=== PATIENT | female | born 1965 | race Caucasian/White ===

== ENCOUNTER → 2016-11-06 | Outpatient (CLI) | payer MEDICAID ==
[~2016-11-06] MED LIST: ASPIR 8181 MG PO; ATIVAN 1 MG1 MG PO; BYSTOLIC5 MG PO; CORDARONE,PACE200 MG PO; DUONEB INH; LASIX40 MG PO; LOPERAMIDE2 MG PO; NORCO 5-325 TA1 EACH PO; PROVENTIL OR V6.7 GM INH; ZOFRAN4 MG PO
== END ==
LOC: LKRMC 09:36
DX: R91.8 Other nonspecific abnormal finding of lung field (principal)

== ENCOUNTER 2016-11-20 20:50 | Inpatient (IN) | payer MEDICAID ==
[~2016-11-20] VITALS: Ht 165.1 cm; Wt 77.7 kg
--- NOTE | ~2016-11-20 | HP ---
PATIENT'S NAME: RAJ POSADASH Gerson [facility] AGE: 50 Y [address] ROOM: [place] [address] LOCATION: GPCU ADMIT DATE: 11/20/2016 History & Physical DISCHARGE DATE: FAMILY PHYSICIAN: PHYSICIAN, NO ATTENDING PHYSICIAN: Aaron Ny DATE OF SERVICE: CHIEF COMPLAINT: Acute hypoxic respiratory failure in the setting of recently discovered mediastinal mass. HISTORY OF PRESENTING ILLNESS: This 50-year-old white female with history of tobaccoism came to the emergency department this evening with unrelenting right-sided pleuritic-type chest wall pain, coughing, and dyspnea, which came on around 3 o'clock in the morning last night. She was unable to get any relief and decided to come in for definitive evaluation and management. She was seen and evaluated by Dr. Coates for cough and shortness of breath which began about a month ago. She had a CT scan done about 3 weeks ago, which demonstrated a mediastinal mass. She was scheduled to follow up with Dr. Osorio on an outpatient basis, but felt that she "couldn't wait any longer." She has been having paroxysms of coughing and episodes of hemoptysis. She denies fever, chills, or sweats. Denies headaches, dizziness, or lightheadedness. No abdominal pain. No nausea. Appetite has been fair. She stools and voids normally. Denies numbness or tingling in her extremities or any associated physical or constitutional complaints. PAST MEDICAL HISTORY: ALLERGIES: STATINS, LATEX. ILLNESSES: 1. Essential hypertension. 2. Chronic hypoxic and hypercapnic respiratory failure. 3. Lower extremity edema. 4. Mediastinal mass (discovered recently). CURRENT MEDICATIONS: 1. Proventil HFA 2 puffs p.o. q.4 hours p.r.n. shortness of breath. 2. Aspirin 81 mg p.o. daily. 3. Lasix 40 mg p.o. daily. 4. DuoNeb per nebulizer q.6 hours p.r.n. shortness of breath. PATIENT'S NAME: NICHOLE POSADAS [facility] AGE: 50 Y [address] ROOM: [place] [address] LOCATION: GPCU ADMIT DATE: 11/20/2016 History & Physical DISCHARGE DATE: FAMILY PHYSICIAN: PHYSICIAN, NO ATTENDING PHYSICIAN: Aaron Ny 5. Nebivolol 5 mg p.o. daily. FAMILY HISTORY: Significant for VFib in her father, he also suffered from diabetes mellitus. Mother has high blood pressure. SOCIAL HISTORY: She is and lives in [place]. She has a 91-jdjf-jegh-year history of smoking tobacco, currently smokes less than a pack of cigarettes per day. No significant history of alcohol use and no illicit drug use. REVIEW OF SYSTEMS: As per HPI. All other organ systems are reviewed and are negative. OBJECTIVE: VITAL SIGNS: Temperature 100.1, pulse 106, respirations 24, blood pressure 172/67, weight is 77.3 kilograms, O2 saturation 96% on room air. GENERAL: She is anxious, cooperative, lying in the bed, in no acute distress. She demonstrates paroxysms of coughing. SKIN: Supple, pink, warm, and dry. No obvious rashes. HEENT: Otherwise, normocephalic. Sclerae nonicteric. Pupils equal, round, and reactive to light and accommodation. Extraocular movements appear intact. Nasal turbinates normal in appearance. Oropharynx clear. Mucous membranes are pink and moist. NECK: Supple. No masses or adenopathy. No thyromegaly. No JVD. CHEST: Chest wall is symmetrical. HEART: Tachycardic but regular. LUNGS: Coarse and diminished. Long expiratory phase. No candy wheezes. No areas of consolidation. ABDOMEN: Soft, nontender. Bowel sounds present. No masses or hepatosplenomegaly. : Not done. RECTAL: Not done. EXTREMITIES: Display no significant clubbing, cyanosis, or edema. NEUROLOGIC: Anxious but no focal deficits. LABORATORY AND X-RAY DATA: CT scan per PE protocol shows a large mediastinal mass without significant change from previous. CBC showed a white blood cell count 12.1, hemoglobin is 12.6, hematocrit is 36.3, platelets 237. Chemistries revealed BUN and creatinine 9 and 0.6 respectively, sodium and potassium of 136 and 3.6, chloride and CO2 of 105 and 22, calcium is 8.8. AST and ALT 26 and 17. Albumin was 3.1. Glucose 124. Sedimentation rate was elevated at 79. PT and PTT 11 and 30 respectively with an INR of 1.05. ABGs revealed a pH 7.49, pCO2 of 30, pO2 of 66. Cardiac enzymes revealed a troponin I of less than 0.04. PATIENT'S NAME: NICHOLE POSADAS [facility] AGE: 50 Y [address] ROOM: [id number] [place], [place] [address] [facility] ADMIT DATE: 11/20/2016 History & Physical DISCHARGE DATE: FAMILY PHYSICIAN: PHYSICIAN, NO ATTENDING PHYSICIAN: Aaron Ny ProBNP was 252. C-reactive protein 9.57. ASSESSMENT AND PLAN: 1. Acute hypoxic respiratory failure in the setting of mediastinal mass. We will admit to inpatient care. Continue with supplemental oxygen. Encourage good pulmonary hygiene. We will have Respiratory Therapy assess and provide risk severity scoring. We will hold off on antibiotic therapy and await cultures and follow up on that when the results are known. 2. Mediastinal mass. We will request consultation with Dr. Osorio to consider mediastinoscopy. We will hold her n.p.o. for now until those plans can be delineated. 3. Hemoptysis. We will review the CT scan report when it is available. We will manage the cough symptomatically for now and await Dr. Osorio's evaluation. Also await cultures as above. 4. Essential hypertension, suboptimal control. We will resume her nebivolol and monitor the trend. We will watch her fluid volume balance carefully. 5. Mild protein calorie malnutrition. Encourage balanced nutritional intake. She is going to be n.p.o. in anticipation of the procedure as above. 6. Deep venous thrombosis prophylaxis. We will hold off on heparin or Lovenox in light of the possibility of mediastinoscopy. MD BURAK ISABEL/latisha /[id number] D: [id number] T: [id number] HISTORY & PHYSICAL
--- NOTE | ~2016-11-20 | ER ---
[facility] A[facility] 50 Y [address] ROOM: [id number] [place], [place] [address] [facility] ADMIT DATE: 11/20/2016 ER/Outpatient Report DISCHARGE DATE: FAMILY PHYSICIAN: PHYSICIAN, NO ATTENDING PHYSICIAN: Aaron Ny Admission date and time documented on the medical record. I saw the patient at 2105 hours. CHIEF COMPLAINT: Shortness of breath, persistent productive cough of bloody sputum, fatigue, pain on inspiration, and fever. HISTORY OF PRESENT ILLNESS: This patient is a 50-year-old female, who has been ill for about a month. She has had a persistent cough and is now having hemoptysis with shortness of breath and fatigue. She has pain on inspiration. She has been running a fever up to 102 over the past [address] hours[address] She had a CT scan of the chest 3 weeks ago that showed a mediastinal mass that she had a bronchoscopy by Dr. Coates, billiard player. Biopsy was performed. Biopsy was negative. She was scheduled to see Dr. Osorio, thoracic surgeon, tomorrow, but was feeling so rotten that [facility] Temperature was 100.1 tympanic on arrival here. She was satting 96% on room air. She has had some hemoptysis and persistent cough. She had some pain on inspiration but no other chest pain. No back pain. No abdominal pain. No nausea, vomiting, diarrhea, or urinary frequency, urgency, or dysuria. No incontinence. No lightheadedness, dizziness, syncope, or near syncope. No headache, eyes, ears, nose, throat, neck, or spine pain. No fall or trauma. She has been on Levaquin for about 10 days. Her last day of the Levaquin medication is tomorrow. No joint or muscle swelling, redness, or pain. No skin eruptions or rash. No history of neuro changes. She does have some anxiety problems, depression problems. No endocrine problems. HOME MEDICATIONS: See attached medication list. ALLERGIES: STATINS. SOCIAL HISTORY: The patient smokes a pack of cigarettes per day. Occasional intake of alcohol. SIGNIFICANT PAST MEDICAL HISTORY: Hypertension, asthma, tobacco abuse, hemoptysis, mediastinal mass, pneumonia. PATIENT'S NAME: NICHOLE POSADAS [facility] AGE: 50 Y [address] ROOM: [id number] [place], [place] [address] LOCATION: GPCU ADMIT DATE: 11/20/2016 ER/Outpatient Report DISCHARGE DATE: FAMILY PHYSICIAN: PHYSICIAN, NO ATTENDING PHYSICIAN: Aaron Ny OPERATIONS: Shoulder surgery, bronchoscopy, hysterectomy, tubal ligation, colonoscopy. REVIEW OF SYSTEMS: All systems reviewed by me are negative with the exception of those discussed in the history of present illness. PHYSICAL EXAMINATION: VITAL SIGNS: Temperature 100.1 tympanic, pulse 106, respirations 24, blood pressure 172/67, O2 saturation on room air is 96%. HEENT: Head: Normocephalic. Eyes: Clear. Ears: Clear TMs bilaterally. Nose clear. Throat: Clear. Mucous membranes moist. NECK: Negative. SPINE: Negative. LUNGS: Decreased breath sounds especially in the right lung field. Inspiratory wheezing in the right upper lung. Scattered rhonchi. Coarse cough. Some mild hemoptysis. The patient is tachypneic with a respiratory rate of 24. HEART: Tachy, regular. Pulses palpable. ABDOMEN: Soft, nondistended, nontender. Good bowel tones. No organomegaly or abnormal mass palpable. EXTREMITIES: No peripheral edema, cyanosis, or deformity. NEUROVASCULAR: Intact. SKIN: Clear. No skin eruptions or rash. LABORATORY DATA AND X-RAYS: Chest x-ray shows most likely mediastinal mass with right upper lobe infiltrate. We will review x-ray with the radiologist. Laboratory: Procalcitonin was 0.06, lactate was 1.2. Arterial blood gases showed a pH of 7.49, pCO2 of 30 with a pO2 of 66, O2 saturation 94% on room air. White count was 12,100, 76 segs, 16 lymphs, 6 monos, 1 eo, 1 baso, hemoglobin was 12.6, hematocrit 36.3, platelet count was 237,000, sedimentation rate is 79. PTT was 30, pro-time was 11, with an INR 1.05. Respiratory panel was negative. D-dimer was 2.32. CMS was normal except for low potassium 3.6, elevated glucose 124. CPK was 138. Busie-tp-wgvi cardiac enzymes were normal. CRP was 9.57. ProBNP was 252. EMERGENCY DEPARTMENT COURSE: I went ahead and did give the patient IV normal saline, fluids, fentanyl for pain. I got a CT scan of the chest with PE protocol that showed no pulmonary embolism. She has a large mediastinal mass, resulting in right main pulmonary artery stenosis and superior vena cava stenosis. She has consolidation in the right middle and upper lobe with cavitation in the superior segment of the PATIENT'S NAME: NICHOLE POSADAS [facility] AGE: 50 Y [address] ROOM: [place] [address] [facility] ADMIT DATE: 11/20/2016 ER/Outpatient Report DISCHARGE DATE: FAMILY PHYSICIAN: PHYSICIAN, NO ATTENDING PHYSICIAN: Aaron Ny right upper lobe. Small right pleural effusion. Moderate to severe emphysema. She had indistinct enlargement of the left adrenal gland. CT scan was read by Radiology, see dictated transcribed report. I did discuss this patient with Dr. Osorio. The patient will be admitted to the hospital. IMPRESSION: 1. Hemoptysis with shortness of breath, inspiratory wheezing and pain with a large mediastinal mass, and consolidation of the right middle and upper lobes on CT scan of the lung. 2. History of chronic obstructive pulmonary disease, asthmatic type. 3. Tobacco abuse. 4. Hypertension. PLAN: Discussed the patient with Dr. Ny, hospitalist. We will admit the patient to the hospital. Consult with Dr. Osorio on this patient. The patient most likely will need a mediastinoscopy for further evaluation of this large mediastinal mass. Discussion ensued with the patient and her regarding my findings and recommendations, she understands. Accumulated critical care time 30 minutes. MD TAYLOR ACHARYA/modl /[id number] P d: 11/21/16 0408 t: 11/21/16 1809, OUTPATIENT REPORT
--- NOTE | ~2016-11-20 | CON ---
PATIENT'S NAME: LALA POSADAS [facility] AGE: 50 Y [address] ROOM: [id number] [place], [place] [address] LOCATION: GPCU ADMIT DATE: 11/20/2016 Consultation DISCHARGE DATE: FAMILY PHYSICIAN: PHYSICIAN, NO ATTENDING PHYSICIAN: Aaron Ny DATE OF CONSULTATION: 11/21/2016 REFERRING PHYSICIAN: Iftikhar Coates MD A consult to Mihir Osorio DO. CHIEF COMPLAINT: Lala Posadas is a 50-year-old woman with an uncharacterized mediastinal mass that is probably a tobacco related cancer. HISTORY OF PRESENT ILLNESS: The history of the present illness is obtained from visiting with Mrs. Posadas who is a reasonably good historian; with Dr. Osorio; and review of the current [facility] record. The patient was in her normal state of health until July 2016. At that time, she developed a cough productive of green sputum and a fever to 100 to 102.6 degrees. The patient had no rigors or sweats. She saw a physician's grants and contracts assistant in [place], who prescribed an antibacterial antibiotic, benzonatate, and a nebulizer which helped her symptoms. However, the cough persisted. In late August 2016, the patient presented for re-evaluation and levofloxacin was administered. Her cough improved for a week. In October 2016, the patient presented to the emergency room in [place]. Antibiotics were prescribed, and the patient was referred to Dr. Iftikhar Coates for evaluation of the mediastinal mass. Two days later, the patient saw Dr. Coates; and 3 days later, the patient underwent a bronchoscopy. Reviewing Dr. Coates's record on 11/01/2016, the CAT scan of the chest with PE protocol was performed in the [place] [facility] and revealed a 7.3 cm right hilar and subcarinal mass with calcifications present within the superior portion of the mass. There was encasement of the right mainstem bronchus and narrowing of the distal right upper lobe bronchi. Mediastinal lymphadenopathy was present with the largest node measuring 1.6 cm. Dense consolidation with cavitation was noted within the posterior right upper lobe. The lungs demonstrated diffuse peribronchial thickening, more prominent within the right lung and much more pronounced within the upper lobe of the right lung. Centrilobular emphysema was noted throughout, more prominent within the apices. The upper abdomen was unremarkable. On 11/06/2016, Dr. Coates PATIENT'S NAME: LALA POSADAS [facility] AGE: 50 Y [address] ROOM: [id number] [place], [place] [address] LOCATION: GPCU ADMIT DATE: 11/20/2016 Consultation DISCHARGE DATE: FAMILY PHYSICIAN: PHYSICIAN, NO ATTENDING PHYSICIAN: Aaron Ny performed the bronchoscopy. That report is not appended to the medical record. The fine-needle aspirate of the main raphael was negative for malignant cells. The right upper lobe endobronchial biopsy revealed no changes diagnostic for cancer. The right upper lobe bronchoalveolar lavage was negative for malignant cells. The right middle lobe bronchoalveolar lavage were negative for cancer. The respiratory culture revealed 10,000 to 50,000 Enterobacter cloacae. AFB smears and fungal smears and cultures were negative. The patient was referred to Dr. Mihir Osorio for evaluation of the potential benefit of the mediastinoscopy for diagnostic purposes. However, prior to that appointment, the patient became so ill she presented to the [facility] Emergency Room. The patient developed severe right chest pain associated with hemoptysis. The patient recalls she produced goobers of blood about the size of a quarter on 10 occasions. She developed some pleurisy. She felt she had a fever although the possibility of a dental infection was in the differential diagnosis (the patient has been seeing Dr. Mihir Crews for dental evaluation and had been told she needed an antibiotic, and tooth cleaning, and possible extraction). The patient acknowledged she had been anorexic for a month and had lost 25 to 30 pounds. The patient has experienced substernal dysphagia for large pills, bread, and meat, and mild odynophagia without heartburn. On 11/21/2016, Dr. Osorio took the patient to surgery and performed a mediastinoscopy with biopsy of mediastinal mass. Dr. Osorio saw an anterior mediastinal mass when he entered the mediastinum and biopsied it. The patient's lab and x-ray upon admission revealed the white count was 12,100 with 76% neutrophils, hemoglobin was 12.6 g/dL, the MCV 95, and the platelets 237,000. The INR was 1.05. The PTT was 30. The CMS revealed an albumin of 3.1 g/dL, globulin 4.5 g/dL, and was otherwise unremarkable. The C-reactive protein was 9.57 g/dL, TSH 2.790, and the T4 was 8 ug/dL. The LDH has subsequently been obtained and was 1330 International Units/L with the upper limits of normal being 246. Blood cultures are negative. The two-view chest upon admission revealed the right hilar mass with dense patchy parenchymal opacity at the lateral right upper lung. The CT scan with PE protocol on 11/20/2016 was compared to the earlier scan on 11/01/2016 performed in [place]. The mediastinal mass was now 8.9 cm. Internal calcifications were present. There was marked anterior and middle mediastinal adenopathy and a large mass extended to the right hilum. There was mass effect with displacement of the adjacent vascular structures and marked severe narrowing of the right main pulmonary artery. There was severe stenosis of the distal superior vena cava. Dense consolidation with cavitation was present at the upper lobe of the right lung. A small right pleural effusion was present. There was diffuse enlargement of the left adrenal gland compatible with PATIENT'S NAME: LALA POSADAS [facility] AGE: 50 Y [address] ROOM: [place] [address] [facility] ADMIT DATE: 11/20/2016 Consultation DISCHARGE DATE: FAMILY PHYSICIAN: PHYSICIAN, NO ATTENDING PHYSICIAN: Aaron Ny. There was no evidence of pulmonary emboli, but emphysematous changes were present throughout the mid and upper lungs bilaterally. A small pericardial effusion was present. The patient smoked 1 pack per day of cigarettes for 36 years, most recently [place], but has abstained from tobacco for a month. She reports no occupational exposure to asbestos, Radon, or diesel fuel. 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 PAST MEDICAL HISTORY: Active medical problems, chronic and diagnosed. 1. Essential arterial hypertension noted on a checkup in 2005. This has not been labile or associated with end-organ damage. 2. COLD with reactive airways disease depending on the season. The patient has been on inhalers for exercise-induced asthma for many years and has centrilobular emphysema on her x-ray. 3. Tobacco use: one pack per day for 36 years, abstained for a month. 4. Overweight. The BMI on 11/20/2016, is 29.8 kg/m2. 5. Allergic rhinitis, treated with montelukast. 6. Colonic polyposis. His screening colonoscopy at age 45 performed in [place] revealed benign polyps. The patient cannot characterize them further. 7. Hypercholesterolemia noted in 2011. 8. Lumbar spinal stenosis, possibly symptomatic with left thigh discomfort. PAST SURGICAL HISTORY: Acute medical illnesses (resolved), past surgeries, injuries: 1. 1971, left wrist fracture. 2. 2798-1038: G4, P4, AB0. 3. 2000, SLAP injury of the right superior glenoid labrum, treated surgically. 4. 2007, vaginal hysterectomy with left unilateral salpingo-oophorectomy. The patient had multiple concerning Pap smears associated with the human papillomavirus. MEDICATIONS: Upon admission: 1. Albuterol HFA one puff every 4 hours. 2. ASA 81 mg p.o. daily. 3. Furosemide 40 mg daily. 4. Ipratropium/albuterol one inhalation every 6 hours. 5. Nebivolol 5 mg p.o. daily. ALLERGIES: ADVERSE REACTIONS TO MEDICATIONS, TRANSFUSIONS, AND ALLERGIES. PATIENT'S NAME: LALA POSADAS [facility] AGE: 50 Y [address] ROOM: [place] [address] [facility] ADMIT DATE: 11/20/2016 Consultation DISCHARGE DATE: FAMILY PHYSICIAN: PHYSICIAN, NO ATTENDING PHYSICIAN: Aaron Ny 1. MULTIPLE STATINS LED TO MUSCLE ACHES. 2. THE PATIENT HAS HAD NO BLOOD TRANSFUSIONS. SOCIAL HISTORY: Tobacco: 1. One pack per day for 35 years. Abstained since October 2016. Alcohol: 1. A beer every several months. Caffeine: 1. One green tea daily, but the patient maintains that she sips it all day. 2. One coffee in the morning. 3. Dr. Beach a day. IMMUNIZATIONS: Positive flu. Positive Pneumovax. In 2013, positive tetanus toxoid booster. Negative varicella zoster virus. FAMILY HISTORY: The patient's paternal grandfather of mesothelioma at age 88. SOCIAL HISTORY: The patient was born in [place], [place], but her family moved to [place], [place] at age 11 and she graduated a [employer]. 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 The patient also got a bachelor's in Health Information Management in 2015. She currently [place] her boyfriend. She has and has been on 3 occasions. She has a daughter in [place], [place] and 3 sons in [place], [place]. The patient is not a mu-ism goer. REVIEW OF SYMPTOMS: 1. Nocturia, times 1 to 2. 2. Constipation. The patient maintains she is having fewer bowel movements because she has been eating less frequently. PHYSICAL EXAMINATION: VITAL SIGNS: Pulse 88 and regular, blood pressure 125/55, respiratory rate 28, temperature 97.7, and SpO2 of 96% on 2 L. Height 64 inches, weight 78.8 kg (174 pounds). BMI 29.8 kg/m2. GENERAL: Well-developed, overweight, 50-year-old female, who is tachypneic. HEENT: The patient has several teeth left in the maxillary jaw and they are all in poor repair. The patient's face is minimally edematous. Lymph nodes not palpable. NECK: Mild JVD. There is a scar just superior to the sternum where the mediastinoscopy was performed. PATIENT'S NAME: LALA POSADAS [facility] AGE: 50 Y [address] ROOM: [address] [place] [id number] [facility] ADMIT DATE: 11/20/2016 Consultation DISCHARGE DATE: FAMILY PHYSICIAN: PHYSICIAN, NO ATTENDING PHYSICIAN: Aaron Ny CHEST: Bilateral rhonchi and decreased breath sounds throughout the right lung. CV: Decreased S1 and S2. No murmurs, bruits, or adventitious sounds. BREASTS: No masses. ABDOMEN: No masses, tenderness, or organomegaly. GENITALIA AND RECTAL: Not examined. EXTREMITIES: Without peripheral edema. Pulses 2+ throughout. NEUROLOGIC: Cranial nerves 2 through 12 intact. Strength 5/5 throughout. Deep tendon reflexes not assessed. SKIN: A wart is present on the back. There are junctional nevi and freckles. IMPRESSION: 1. A 50-year-old woman with a 3 month history of progressive productive cough, occasionally responsive to antibiotics, now anorexic for 1 month with a 25 to 30 pound weight loss, anorexia, odynophagia, a markedly elevated LDH, in association with an 8.9 cm middle mediastinal mass extending to the right hilum displacing adjacent vascular structures as well as the left adrenal gland mass which is new over 3 weeks. The patient is at risk for superior vena cava syndrome. 2. 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 Given the rapidity with which her symptoms have developed, she may have small cell carcinoma. RECOMMENDATIONS: Diagnostic: 1. MRI of the brain when able. At the present time, the patient cannot lie recumbent. 2. Await tissue. 3. Biopsy of the left adrenal gland if the mediastinoscopy results are negative. Treatment: 1. Pending tissue, no antineoplastic therapy now. Patient Education: 1. Told we suspect she has a tobacco related primary lung cancer. 2. Told that she had a small cell carcinoma of the lung, which the odds favor. Her prospects could rapidly improve with systemic chemotherapy. MD JORDEN BAEZ/modl PATIENT'S NAME: LALA POSADAS [facility] AGE: 50 Y [address] ROOM: [place] [address] [facility] ADMIT DATE: 11/20/2016 Consultation DISCHARGE DATE: FAMILY PHYSICIAN: PHYSICIAN, NO ATTENDING PHYSICIAN: Aaron Ny /[id number] CC: MD Iftikhar Knutson MD Jeffrey R Berney, MD d: 11/23/16 1755 t: 11/25/16 0910, CONSULTATION REPORT
--- NOTE | ~2016-11-20 | OR ---
PATIENT'S NAME: NICHOLE POSADAS [facility] AGE: 50 Y [address] ROOM: [place] [address] LOCATION: GICU ADMIT DATE: 11/20/2016 OR/Procedure Report DISCHARGE DATE: FAMILY PHYSICIAN: PHYSICIAN, NO ATTENDING PHYSICIAN: Aaron Ny SURGEON: Mihir Lerma DO TECHNICAL CUSTOMER SUPPORT SPECIALIST: DATE OF PROCEDURE: 11/21/2016 PREOPERATIVE DIAGNOSIS: Mediastinal mass. POSTOPERATIVE DIAGNOSIS: Mediastinal mass with frozen section indicating malignancy. PROCEDURE: Mediastinoscopy with biopsy of mediastinal mass. BRIEF HISTORY: Ms. Posadas is a 50-year-old, white female with the above- noted diagnosis. DESCRIPTION OF PROCEDURE: She has been brought to the operative suite today after informed consent was obtained. Sterilely prepped and draped in usual fashion after induction of general anesthetic for mediastinoscopy. A 2.5 cm curvilinear incision was created one fingerbreadth above the sternal notch and the incision was carried out with 11 blade and then we switched to cautery for the remainder the dissection and hemostasis. Larger veins were encountered secondary to the mediastinal mass with the SVC compression. These were divided with surgical clips and 2-0 ties. We the strap muscles and identified the tracheal rings. We entered the anterior mediastinum bluntly with a finger tip and advanced the mediastinoscope. Mediastinal mass was encountered. Biopsies were taken for both frozen and permanent section. Frozen section did indicate malignancy. Additional hemostasis was obtained with electrocautery. Mediastinoscope was withdrawn. The strap muscles were approximated with a 2-0 Vicryl. The platysma was closed with 2-0 Vicryl and the skin was closed with 4-0 Monocryl. The patient tolerated the procedure well. MIHIR LERMA DO MCB/nellal /[id number] d: 11/22/162229 t: 11/23/16 0950, OPERATIVE SUMMARY
--- NOTE | ~2016-11-20 | OR ---
PATIENT'S NAME: NICHOLE POSADAS [facility] AGE: 50 Y [address] ROOM: [address] [place], [place] [address] LOCATION: GPCU ADMIT DATE: 11/20/2016 OR/Procedure Report DISCHARGE DATE: FAMILY PHYSICIAN: PHYSICIAN, NO ATTENDING PHYSICIAN: Aaron Ny SURGEON: Mihir Osorio DO BI ARCHITECT: DATE OF PROCEDURE: 11/22/2016 PREOPERATIVE DIAGNOSIS: Pericardial tamponade. POSTOPERATIVE DIAGNOSIS: Pericardial tamponade. PROCEDURE PERFORMED: Subxiphoid approach to pericardial window. BRIEF HISTORY: Mrs. Posadas is a 50-year-old white female, well known to me from a mediastinoscopy performed yesterday for a very large mediastinal mass which was malignant. Today, early in the morning, she had an episode of atrial fibrillation, and an echo was ordered as part of that workup. She had converted to sinus rhythm and was resting comfortably until approximately 3:15 in the afternoon when she woke up suddenly with acute shortness of breath requiring her to sit almost bolt upright to achieve any kind of easy breathing. The echo was reviewed and found to have significant changes of pericardial tamponade. We were called, and she has been brought to the operative suite immediately for decompression of the pericardial effusion. DESCRIPTION OF PROCEDURE: She was intubated in a semirecumbent fashion secondary to her dyspnea, and then once stabilized, sterilely prepped and draped in the usual fashion over the sternum and anterior epigastrium. An incision was carried out over the level of the xiphoid onto the anterior epigastrium. Fascia was divided in the midline. The xiphoid was divided and then retracted. Soft tissues were excised with electrocautery. Hemostasis was controlled with electrocautery. The pericardium was encountered. The fluid behind the pericardium did not appear bloody as I was slightly worried for erosion of the major vessels involved by the mediastinal mass. The pericardium was opened. Serous-appearing fluid was evacuated, approximately 150 to 200 mL, and specimen was sent for cytology of the fluid, as well as specimen was sent for histologic examination of the pericardium. A 19-Maltese Anupam drain was brought through a separate stab incision, placed in the pericardial space, and secured to the chest with 0 silk. The incision was then closed in a layered fashion with 0 Vicryl and 4-0 Monocryl. The patient tolerated the procedure well and was transferred to the recovery area in stable condition. PATIENT'S NAME: NICHOLE POSADAS [facility] AGE: 50 Y [address] ROOM: [place] [address] [facility] ADMIT DATE: 11/20/2016 OR/Procedure Report DISCHARGE DATE: FAMILY PHYSICIAN: PHYSICIAN, CARA ATTENDING PHYSICIAN: Aaron Ny DO EDWARDO HERNANDEZ/latisha /[id number] d: 11/23/16 1633 t: 11/24/16 1117, OPERATIVE SUMMARY
--- NOTE | ~2016-11-20 | ECHO ---
Transthoracic Echocardiography Report (TTE) Demographics Patient Name NICHOLE POSADAS Date of Study 11/22/2016 Patient Number [id number] Visit Number [id number] Date of 1965 Room Number G6318 Gender Female Number Age 50 year(s) Referring Yanely Velásquez MD Church Warden Anette Khoury RVT, Physician RDCS Physician Interpreting Evan [employer] Project Engineer Physician A Supervising Ordering [facility] MD/MLP Physician Nurse Stress Business Administration Teacher Conclusions Contractility Score Summary Normal Left Ventricular contractility was noted. Summary Technically difficult exam. Exam done with patient sitting up due to difficult breathing for the patient. The estimated left ventricular ejection fraction is 50-55%. The left ventricle is normal in size . Unable to determine diastolic function. Mild tricuspid regurgitation by color Doppler. There is mild pulmonary hypertension. The pulmonary pressure (RVSP) is 38 mmHg. Moderate global pericardial effusion. There is echocardiographic evidence of early cardiac tamponade. Procedure Type of Study TTE procedure:2D Echocardiogram. Procedure Date Date: 11/22/2016 Start: 02:26 PM Study Location: Inpatient Portable Technical Quality: Fair due to patient immobility. Indications:Atrial fibrillation. Appropriate Use Criteria: 8 Patient Status: Routine Rhythm: NSR HR: 78 bpm BP: 102/54 mmHg M-Mode/2D Measurements LV Diastolic Dimension: 4.2 cm LV Systolic Dimension: 3.1 cm LV Septum Diastolic: 1.02 cm LV PW Diastolic: 1.03 cm AO Root Dimension: 2 cm Cardiac Output: 2.52 l/min LA Dimension: 3.3 cm RV Diastolic Dimension: 2.3 cm LVOT: 1.9 cm EF Estimated: 50 % LVOT VTI: 11.4 cm LV Stroke volume: 32.31 ml RV Mid: 2.59 cm RV Length: 5.3 cm TAPSE: 1.37 cm TDI-S': 11.6 cm/s Doppler Measurements AV Peak Velocity: 1.2 m/s AV Peak Gradient: 5.76 mmHg AV Mean Gradient: 3 mmHg LVOT Peak Velocity: 0.68 m/s PV Peak Gradient: 3.86 mmHg TR Velocity:2.88 m/s Estimated PASP: 38.18 mmHg TR Gradient:33.18 mmHg A' Septal Velocity: 0.17 m/s Estimated RAP:5 mmHg A' Lateral Velocity: 0.13 m/s Estimated RVSP: 38 mmHg E' Septal Velocity: 0.07 m/s E' Lateral Velocity: 0.15 m/s Findings Left Ventricle The left ventricle is normal in size . Unable to determine diastolic function. Right Ventricle Normal right ventricle structure and function. Left Atrium Normal left atrial size. There is no evidence of patent foramen ovale or atrial septal defect by color Doppler. Right Atrium Normal right atrial size. IVC measures 1.79 cm with poor inspiratory collapse. Collapse of right atrial free wall . Mitral Valve Normal mitral valve structure and function. Aortic Valve Normal aortic valve structure and function. Tricuspid Valve Mild tricuspid regurgitation by color Doppler. There is mild pulmonary hypertension. The pulmonary pressure (RVSP) is 38 mmHg. Pulmonic Valve Normal pulmonic valve structure and function. Pericardial Effusion Moderate global pericardial effusion. There is echocardiographic evidence of cardiac tamponade. Miscellaneous Visualized portions of the aortic root and ascending aorta appear normal in size. Pleural Effusion No evidence of pleural effusion. Contractility Score LV regional wall motion:(0-Non visualized 1-Normal 2-Hypokinesis 3-Akinesis 4-Dyskinesis 5-Aneurysm) Signature dtt: Carter Gordon dtd: 11/22/16 1426 Physician Self Edit
--- NOTE | ~2016-11-20 | CON ---
PATIENT'S NAME: RAJ POSADASH Gersno [facility] AGE: 50 Y [address] ROOM: [place] [address] LOCATION: GPCU ADMIT DATE: 11/20/2016 Consultation DISCHARGE DATE: FAMILY PHYSICIAN: PHYSICIAN, NO ATTENDING PHYSICIAN: Aaron Ny DATE OF CONSULTATION: 11/28/2016 REFERRING PHYSICIAN: Iftikhar Coates MD HISTORY OF PRESENT ILLNESS: This is a 50-year-old female with history of stage IV carcinoma of the lung, the patient presented to the emergency department complaining of right-sided pleuritic chest pain, cough, dyspnea with exertion, apparently the patient was evaluated by Dr. Coates for cough and shortness of breath which began about a month ago. She had a CT scan done about 3 weeks which did demonstrate mediastinal mass. She was scheduled to follow up with Dr. Osorio as an outpatient, but felt that she could not wait any longer. She was been having in paroxysms of coughing and episode of hemoptysis. She denies fevers, chills, or sweats, the patient apparently has became more short of breath after her admission, she did have a mediastinoscopy. After her stay in the hospital, she has been on bilevel ventilation. A CT scan of the chest was done, which revealed that she has large right-sided pleural effusion with moderate left-sided pleural effusion. PAST MEDICAL HISTORY: ALLERGIES: SHE IS ALLERGIC TO STATIN AND LATEX. ILLNESSES: 1. Essential hypertension. 2. Hypoxic and hypercapnic respiratory failure. 3. Lower extremity edema. 4. Mediastinal lung mass. CURRENT MEDICATIONS: 1. Proventil HFA. 2. Aspirin. 3. Lasix. 4. DuoNeb nebulizer. 5. Nebivolol. FAMILY HISTORY: Significant for VFib in her father, he also suffered from diabetes mellitus. PATIENT'S NAME: RAJ POSADASH Gerson [facility] AGE: 50 Y [address] ROOM: [address] [address] LOCATION: GPCU ADMIT DATE: 11/20/2016 Consultation DISCHARGE DATE: FAMILY PHYSICIAN: PHYSICIAN, NO ATTENDING PHYSICIAN: Aaron Ny Mother has had high blood pressure. SOCIAL HISTORY: She is and lives in [place]. She has a 88-iutf-vces-year history of smoking tobacco, currently smokes less than a pack of cigarettes per day. REVIEW OF SYSTEMS: 10-point review of system was done and otherwise negative other than mentioned in the history of presenting illness. PHYSICAL EXAMINATION: GENERAL: Upon initial evaluation, the patient is currently on bilevel ventilation, in [id number] respiratory distress. VITAL SIGNS: Blood pressure of 135/85, heart rate of 100, SpO2 was 92% on 80% FiO2 on bilevel ventilation. HEENT: Eyes are nonicteric. Pupils equal, reactive to light and accommodation. HEENT: Normocephalic, atraumatic. No ear or nasal discharge noted with dry mucous membranes. NECK: Supple. No lymphadenopathy. No jugular venous distention. LUNGS: Decreased air entry bilaterally especially on the right which is almost diminished there. Dullness to percussion bilaterally, but the right chest is almost to the upper chest. HEART: S1, S2. No murmurs, rubs, or gallops appreciated. ABDOMEN: Soft, nontender, no palpable organs. EXTREMITIES: Lower extremities, no edema clubbing, or cyanosis. LABORATORY DATA: At the time of evaluation, the CT was reviewed, which revealed a large mediastinal mass without significant change from previous CT. There is possible postobstructive pneumonia, there are bilateral pleural effusions. Her CBC showed white cell count was 12.1, hemoglobin is 12.6, hematocrit was 36.3, and platelets of 237. Chemistries revealed BUN and creatinine 9 and 0.6 respectively. Sodium and potassium 136 and 3.6, chloride and CO2 was 105 and 22, calcium is 8.8. AST and ALT were 26 and 17 respectively. ProBNP was 252. IMPRESSION: 1. Acute hypoxic respiratory failure secondary to stage IV carcinoma of the lung. 2. There is a lot of post obstructive pneumonia. Given the compression on the right upper lobe bronchus and also the bronchus intermedius, at the current time, I will continue the current antibiotics. 3. Postobstructive pneumonia. 4. Bilateral pleural effusions more so on the right than on the left. PATIENT'S NAME: NICHOLE POSADAS [facility] AGE: 50 Y [address] ROOM: [place] [address] LOCATION: GPCU ADMIT DATE: 11/20/2016 Consultation DISCHARGE DATE: FAMILY PHYSICIAN: PHYSICIAN, NO ATTENDING PHYSICIAN: Aaron Ny RECOMMENDATIONS: 1. I will continue the current antibiotics. 2. Aggressive pulmonary toilet. 3. The patient would benefit from thoracentesis today to relieve her symptoms. 4. 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 5. I would recommend aggressive pulmonary toilet. 6. Ambulation. 7. I will keep the patient on ventilation until her symptoms improved. 8. Chemotherapy would be beneficial. At some point, if the patient fails chemotherapy, then endobronchial stenting and ballooning would be beneficial for this patient for palliative care options. Thank you for allowing me to participate in care of this patient. MD ASIA GIBSON/latisha /[id number] d: 12/03/16 1713 t: 01/08/17 0909, CONSULTATION REPORT
--- NOTE | ~2016-11-20 | OR ---
PATIENT'S NAME: NICHOLE POSADAS [facility] AGE: 50 Y [address] ROOM: [facility] [place] [address] [facility] ADMIT DATE: 11/20/2016 OR/Procedure Report DISCHARGE DATE: FAMILY PHYSICIAN: PHYSICIAN, NO ATTENDING PHYSICIAN: Aaron Ny SURGEON: Jose Caruso MD RIVETER HELPER: DATE OF PROCEDURE: 11/27/2016 PROCEDURE: Right-sided thoracentesis. INDICATION FOR PROCEDURE: Right-sided malignant pleural effusion. CONSENT: Risks and benefits of the procedure were discussed with the patient and her family. They agreed to proceed with the procedure. PROCEDURE IN DETAIL: After the informed consent, proper time-out was called by nursing staff. The patient was put on the edge of the bed leaning forward. The right chest was scanned using a Drivy ultrasound machine. The area for needle insertion was marked on the skin, then the area was prepped and draped in the usual fashion, then the area was infiltrated with 1% lidocaine, then a 0.5 cm incision was made vertically in the skin. The thoracentesis needle was inserted into the pleural space. The catheter was advanced over the wire without any resistance, 1000 mL of dark maroon colored fluid were obtained. There were no immediate complications. The patient tolerated the procedure well. Chest x-ray postprocedure revealed improvement of the pleural effusion with no associated pneumothorax. I thank you for allowing me to participate in the care of this patient. MD ASIA GIBSON/modl /[id number] d: 12/03/16 1631 t: 01/08/1711, OPERATIVE SUMMARY
--- NOTE | ~2016-11-20 | DS ---
PATIENT'S NAME: NICHOLE POSADAS [facility] AGE: 50 Y [address] ROOM: [address] [place], [place] [address] LOCATION: GPCU ADMIT DATE: 11/20/2016 Discharge Summary DISCHARGE DATE: 12/07/2016 FAMILY PHYSICIAN: PHYSICIAN, NO ATTENDING PHYSICIAN: Aaron Ny PRINCIPAL DIAGNOSES: 1. Large cell neuroendocrine lung cancer. 2. Mediastinal mass. 3. Acute respiratory failure and hypoxia. 4. Postobstructive pneumonia. 5. Neutropenia. 6. Thrombocytopenia. 7. Pericardial effusion with tamponade, status post pericardial window. 8. Paroxysmal atrial fibrillation. HOSPITAL COURSE: This is a 50-year-old female with a long history of smoking, presented for evaluation of mediastinal mass and shortness of breath related to this. The patient shortly after presentation was taken to the OR by Dr. Osorio, cardiothoracic surgeon, for resection of mediastinal mass. Subsequent biopsy showed that this was indeed the large cell neuroendocrine lung cancer. Dr. Henderson from Oncology was involved and the patient was given a cycle of chemotherapy during her hospitalization tailored to this. The patient in the following days had complications initially with pericardial effusion and tamponade and had subsequently undergone a pericardial window to address this issue and this was successfully treated. The patient initially was noted to be in atrial fibrillation and this has related to pericardial effusion and has not had any beats of atrial fibrillation noted on telemetry throughout her hospitalization after pericardial effusion had been treated. The patient had been started on amiodarone orally and had been taken this throughout her hospitalization and will continue this going forward. As far as anticoagulation, this patient is perhaps at high risk for full anticoagulation noting her history of hemoptysis and lung cancer. At this point, we will only discharge her on baby aspirin and follow along. The patient also had complications during her hospitalization and developed postobstructive pneumonia and also developed pancytopenia related to her chemo and she had been on broad-spectrum antibiotics for several days which have been narrowed down and she had been on Levaquin for the last several days and had stayed afebrile throughout her hospital course. At this point, the patient's white blood cell count is 1.2, ANC 700; and noting that she had been afebrile, I will discontinue all antibiotics and discharge her. Followup with Dr. [place] Alexander with Oncology as soon as possible. PHYSICAL EXAMINATION: GENERAL: The patient today is awake, alert, and oriented x3. Saturating well on room air. PATIENT'S NAME: NICHOLE POSADAS [facility] AGE: 50 Y [address] ROOM: [address] [address] [facility] ADMIT DATE: 11/20/2016 Discharge Summary DISCHARGE DATE: 12/07/2016 FAMILY PHYSICIAN: PHYSICIAN, NO ATTENDING PHYSICIAN: Aaron Ny VITAL SIGNS: Stable. Afebrile. CHEST: Coarse breath sounds but clear. HEART: S1 and S2 regular rate and rhythm. ABDOMEN: Soft, nontender, and nondistended. EXTREMITIES: Without edema. DISPOSITION: Home with home health and follow up with Oncology in 3 to 5 days. Greater than 30 minutes were spent in discharge planning and facilitating. MD LIDIA LINDSEY/latisha /[id number] d: 12/08/161 t: 12/26/16 1521, DISCHARGE SUMMARY
--- NOTE | ~2016-11-20 | CON ---
PATIENT'S NAME: NICHOLE POSADAS [facility] AGE: 50 Y [address] ROOM: [place] [address] LOCATION: GPCU ADMIT DATE: 11/20/2016 Consultation DISCHARGE DATE: 12/07/2016 FAMILY PHYSICIAN: CARA ART ATTENDING PHYSICIAN: Timoteo Young DATE OF CONSULTATION: 11/21/2016 REFERRING PHYSICIAN: Iftikhar Coates MD HISTORY: Mrs. Posadas is a 50-year-old white female who was supposed to see me today in the office for consultation for mediastinal mass, but presented to the emergency department last night. In fact, I happened to be in the emergency department when she presented and reviewed her CAT scan with the ER physician. She was admitted for acute hypoxic respiratory failure. Her history is such that she was seen and evaluated by Dr. Coates for shortness of breath and associated cough. She had a CAT scan done which demonstrated mediastinal mass with likely postobstructive pneumonia. Bronchoscopy had been done and was negative for any significant abnormal findings of malignancy, but given the size of the mass, postobstructive changes, and smoking history, we were asked to see her for mediastinoscopy. This morning, she has been in the hospital now for about 7 hours and is feeling slightly better with oxygen support. She has had a cough. She has had associated hemoptysis. She has had some weight loss. PAST MEDICAL HISTORY: She has a past medical history for hypertension, lower extremity edema, and tobacco abuse. PAST SURGICAL HISTORY: Significant for the bronchoscopy. MEDICATIONS: Her current home medications are: 1. Aspirin 81 mg daily. 2. Lasix 40 mg daily. 3. Nebivolol 5 mg p.o. daily. She is currently prescribed albuterol inhalers while here in the hospital. SOCIAL HISTORY: She has a 52-rnpn-nnfg-year history. Denies any use of alcohol. REVIEW OF SYSTEMS: As per the History of Chief Complaint. Please also see the history and physical by Dr. Ny. PATIENT'S NAME: NICHOLE POSADAS [facility] AGE: 50 Y [address] ROOM: [place] [address] LOCATION: GPCU ADMIT DATE: 11/20/2016 Consultation DISCHARGE DATE: 12/07/2016 FAMILY PHYSICIAN: PHYSICIAN, NO ATTENDING PHYSICIAN: Timoteo Young PHYSICAL EXAMINATION: GENERAL: An alert and oriented white female, slightly anxious, but in no acute distress. LUNGS: Diminished in the right upper lobe. Otherwise, without rales or wheezes. No rhonchi. HEART: Regular rate and rhythm without murmur. No gallop. ABDOMEN: Soft and nontender. Bowel sounds are positive. EXTREMITIES: No evidence of cyanosis, clubbing, or edema. NEUROLOGIC: No evidence of focal deficits. Cranial nerves 2 through 12 are grossly intact. She is alert and oriented x3. LABORATORY DATA: CAT scan shows a large mediastinal mass with compression of the superior vena cava at the level of the right atrium. There is also marked compression of the right mainstem pulmonary artery. The right upper lobe has cavitary lesion, likely from postobstructive changes, and overall right-sided edema in the pulmonary parenchyma. IMPRESSION: Large mediastinal mass concerning for tobacco-related malignancy. PLAN: She is in need of mediastinoscopy. We will take her today for this procedure. 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 Thank you again for allowing me to participate in this very pleasant woman's care. DO EDWARDO HERNANDEZ/modl /[id number] d: 12/12/16 1629 t: 12/13/16 1203, CONSULTATION REPORT
[2016-11-20 21:47] LABS: BASOPHIL # 0.1 K/uL (0.0-0.2); BASOPHIL % 0.8 %; EOSINOPHIL # 0.1 K/uL (0.0-0.5); EOSINOPHIL % 0.9 %; HEMATOCRIT 36.3 % (33.0-46.0); HEMOGLOBIN 12.6 g/dL (10.0-15.0); IMMATURE GRANULOCYTE # 0.1 K/uL (0.0-0.3); IMMATURE GRANULOCYTE % 0.8 %; LYMPHOCYTE % 16.2 %; MCH 32.9 pg (27.0-34.0); MCHC 34.7 gm/dL (32.0-36.5); MCV 94.8 fl (83.0-98.0); MONOCYTE # 0.7 K/uL (0.0-1.0); MONOCYTE % 5.6 %; MPV 12.1 fl (9.4-12.4); NEUTROPHIL # (ANC) 9.1 K/uL (1.8-7.8); NEUTROPHIL % 75.7 %; NRBC % 0 /100WBC (0-0.00); PLATELET COUNT 237 K/uL (150-450); RBC 3.83 M/uL (3.50-5.50); RDW-CV 13.6 % (11.9-14.6); WBC 12.1 K/uL (4.0-11.0)
[2016-11-20 21:52] LABS: INR - (THERAPEUTIC) 1.05 (0.92-1.07); PTT 30 SECONDS (25-32)
[2016-11-20 22:07] LABS: ALBUMIN 3.1 gm/dL (3.5-5.0); ALK PHOS 109 IU/L (33-138); ALT 17 IU/L (12-78); ANION GAP 12.6 (10.0-19.0); AST 26 IU/L (10-40); BLOOD UREA NITROGEN 9 mg/dL (6-24); CALCIUM 8.8 mg/dL (8.5-10.5); CHLORIDE 105 mMol/L (96-110); CO2 22 mMol/L (22-32); CPK 138 IU/L (21-215); CREATININE 0.6 mg/dL (0.5-1.1); ESTIMATED GFR (MDRD EQUATION) > 60; POTASSIUM 3.6 mMol/L (3.7-5.1); SODIUM 136 mMol/L (135-145); TOTAL BILIRUBIN 0.6 mg/dL (0.0-1.5); TOTAL PROTEIN 7.6 g/dL (6.0-8.4)
[2016-11-20 22:22] LABS: BICARBONATE 22.9 mmol/L (18.0-23.0); LACTATE 1.2 mEq/L (0.50-1.60); PCO2 30 mmHg (35-45); PO2 66 mmHg (80-90)
[2016-11-21] MEDS ORDERED: LASIX40 MG PO (00:37)
[2016-11-21] MEDS ORDERED: BYSTOLIC5 MG PO (00:37)
[2016-11-21] MEDS ORDERED: PROVENTIL OR V6.7 GM INH (00:38)
[2016-11-21] MEDS ORDERED: ASPIR 8181 MG PO (00:39)
[2016-11-21] MEDS ORDERED: DUONEB INH (00:39)
--- NOTE | 2016-11-21 01:16 | NUR ---
Patient admitted from ER at 0025 for SOB, cough, and mid sternal pain. Had similar symptoms a month ago and had a bronch and biopsy done of left substernal mass at that time by . Had an appt set up with tomorrow but due to increasing pain and cough came in to ER. CT showed mass remains unchanged. Started coughing up blood yesterday afternoon. Current 0.5PPD smoker, asthma, impaired vision, constipation, gerd, and depression. Allergy to statins and latex. Up to date on pneumo vaccine. Boyfriend to bring in advanced directive today
--- NOTE | 2016-11-21 05:21 | NUR ---
Significant Event: Patient alert and oriented x3. Up with standby assist. Remains in sinus rhythm, HRs 80s-90s, SBPs 120s. Afebrile. Remains on 2liters oxygen with respirations 26-40. Continues to have frequent harsh cough with occassional bloody sputum. Very short of breath with activity. Right AC IV running fluids. Fentanyl given for right chest pain. Cooperative with cares Follow up: to see today, monitor respiratory status, boyfriend is supposed to bring in advanced directive today
--- NOTE | 2016-11-21 17:28 | NUR ---
Significant Event: A/O x3, cooperative with cares. VSS, SBPs 100-130s, HRs 80-90s, oxygen currently at 3 liters. C/O pain with coughing to R) side. Dressing to anterior neck, C/D/I. Biopsies taken of mass; preliminary results showing cancer; patient is aware of this. Dr. Henderson et Dr. Kaufman consulted. Dr. Henderson up to see patient. Up with SBA to bathroom Follow up:
[2016-11-22 04:16] LABS: BASOPHIL # 0.1 K/uL (0.0-0.2); BASOPHIL % 0.6 %; EOSINOPHIL % 0.3 %; HEMATOCRIT 30.9 % (33.0-46.0); HEMOGLOBIN 10.5 g/dL (10.0-15.0); IMMATURE GRANULOCYTE # 0.1 K/uL (0.0-0.3); IMMATURE GRANULOCYTE % 1.2 %; LYMPHOCYTE # 1.4 K/uL (0.8-4.0); LYMPHOCYTE % 12.8 %; MCH 32.3 pg (27.0-34.0); MCV 95.1 fl (83.0-98.0); MONOCYTE # 0.9 K/uL (0.0-1.0); MONOCYTE % 7.7 %; MPV 12.1 fl (9.4-12.4); NEUTROPHIL # (ANC) 8.5 K/uL (1.8-7.8); NEUTROPHIL % 77.4 %; NRBC % 0 /100WBC (0-0.00); RBC 3.25 M/uL (3.50-5.50); RDW-CV 13.9 % (11.9-14.6)
[2016-11-22 04:19] LABS: PLATELET COUNT 182 K/uL (150-450)
--- NOTE | 2016-11-22 04:27 | NUR ---
Significant Event: A/0 X 3, AMBULTES 1 ASSSIST. HR 80-90'S, SBP 100'S TO 120'S, HAS REMAINED ON 2L 02. RESPS AROUND 28, AFEBRILE. LUNGS EXPIRATORY WHEEAZES MOST OF THE TIME. STILL EXPERIENCING FREQUENT BLOODY COUGH. TESSALON PEARLS GIVEN WITH MINIMAL RELIEF IF ANY. 50 MCG FENTANLY GIVEN X 2, LAST AT 2252. SHE STATES IT DOES NOT RELIEVE ALL THE PAIN BUT DOES HELP HER REST, REFUSES PO MEDS DUE TO DIFFICULTY IN SWALLOWING. MRI OF BRAIN THIS AM. Follow up:
[2016-11-22 04:28] LABS: ALBUMIN 2.5 gm/dL (3.5-5.0); ANION GAP 11.9 (10.0-19.0); BLOOD UREA NITROGEN 10 mg/dL (6-24); CALCIUM 8.8 mg/dL (8.5-10.5); CHLORIDE 107 mMol/L (96-110); CO2 21 mMol/L (22-32); CREATININE 0.6 mg/dL (0.5-1.1); ESTIMATED GFR (MDRD EQUATION) > 60; PHOSPHORUS 2.6 mg/dL (2.5-4.9); POTASSIUM 3.9 mMol/L (3.7-5.1); SODIUM 136 mMol/L (135-145)
--- NOTE | 2016-11-22 13:15 | NUR ---
Introduced self and role of care management to patient. Patient lives near [place] with her S.O. She is self pay but says she filed for medicaid on Sunday. Told her I would make a referral to [facility] to see if able to assist her with the medicaid process. She is okay with the referral. She plans home when ready for discharge. She does have O2 at home and uses it most of the time. She says she had worked at [employer] until they closed and was on unemployment, but lost her benefits recenlty as she was unable to demonstrate she was looking for work due to his health. She plans home when reaydy for discharge and says her S.O. is around. [place].
--- NOTE | 2016-11-22 16:49 | NUR ---
Significant Event: ALERT AND ORIENTED X3. UP WITH MINIMAL ASSISTANCE IN ROOM, CALLS FOR HELP APPROPRIATELY. PIV TO RIGHT AC SL'D. PIV TO LEFT WRIST INFUSING NS @ 50 ML/HR AND AMIODARONE GTT, CURRENTLY AT 1 MG/HR X6 HOURS. HAD NEW ONSET A-FIB THIS AM WITH RATES UP TO 130'S. 150 MG AMIO BOLUS GIVEN, FOLLOWED BY GTT PER PROTOCOL. CONVERTED BACK TO SINUS RHYTHM WITH RATES 70'S-90'S. FREQUENT HARSH, CONGESTED COUGH WITH OCCASIONAL BLOODY SPUTUM. LUNGS COARSE. O2 @ 1-2L NC, SATS MID 90'S. INCISION SITE TO ANTERIOR NECK OPEN TO AIR, ICE PACK APPLIED TO AREA PRN. NORCO 2 TABS GIVEN X2 THIS SHIFT. SHORTNESS OF BREATH PROGRESSIVELY WORSE T/O SHIFT. 2D ECHO SHOWED CARDIAC TAMPONADE. TAKEN TO OR FOR PERICARDIAL WINDOW AND POSSIBLE STERNOTOMY @ 1605. Follow up: PENDING PATHOLOGY REPORTS. POSSIBLE TRANSFER TO ICU.
[2016-11-22 18:12] LABS: BICARBONATE 23.9 mmol/L (18.0-23.0); PCO2 105 mmHg (35-45); PO2 202 mmHg (80-90)
[2016-11-22 19:07] LABS: PCO2 46 mmHg (35-45); PO2 314 mmHg (80-90)
[2016-11-22 21:23] LABS: BICARBONATE 23.7 mmol/L (18.0-23.0); PCO2 40 mmHg (35-45); PO2 227 mmHg (80-90)
[2016-11-23 04:26] LABS: BICARBONATE 26.5 mmol/L (18.0-23.0); PCO2 39 mmHg (35-45)
[2016-11-23 04:27] LABS: PO2 106 mmHg (80-90)
[2016-11-23 04:51] LABS: ALBUMIN 2.2 gm/dL (3.5-5.0); ALK PHOS 86 IU/L (33-138); ALT 172 IU/L (12-78); ANION GAP 12.1 (10.0-19.0); AST 310 IU/L (10-40); BLOOD UREA NITROGEN 13 mg/dL (6-24); CALCIUM 8.4 mg/dL (8.5-10.5); CHLORIDE 105 mMol/L (96-110); CO2 25 mMol/L (22-32); CREATININE 0.7 mg/dL (0.5-1.1); ESTIMATED GFR (MDRD EQUATION) > 60; MAGNESIUM 2.1 mg/dL (1.8-2.6); POTASSIUM 4.1 mMol/L (3.7-5.1); SODIUM 138 mMol/L (135-145); TOTAL BILIRUBIN 0.4 mg/dL (0.0-1.5); TOTAL PROTEIN 6.3 g/dL (6.0-8.4)
[2016-11-23 04:54] LABS: BASOPHIL % 0.2 %; HEMATOCRIT 32.8 % (33.0-46.0); HEMOGLOBIN 11.2 g/dL (10.0-15.0); IMMATURE GRANULOCYTE # 0.2 K/uL (0.0-0.3); IMMATURE GRANULOCYTE % 1.9 %; LYMPHOCYTE # 1.2 K/uL (0.8-4.0); LYMPHOCYTE % 9.5 %; MCH 32.4 pg (27.0-34.0); MCHC 34.1 gm/dL (32.0-36.5); MCV 94.8 fl (83.0-98.0); MONOCYTE # 0.8 K/uL (0.0-1.0); MONOCYTE % 6.2 %; MPV 13.1 fl (9.4-12.4); NEUTROPHIL # (ANC) 10.2 K/uL (1.8-7.8); NEUTROPHIL % 82.2 %; NRBC % 0.3 /100WBC (0-0.00); PLATELET COUNT 192 K/uL (150-450); RBC 3.46 M/uL (3.50-5.50); WBC 12.4 K/uL (4.0-11.0)
--- NOTE | 2016-11-23 05:33 | NUR ---
PATIENT IS SLIGHTLY SEDATED WITH IV PROPOFOL AT 30MEQ/KG/MIN SLEEPY BUT EASILY AWAKE WILL FOLLOW SIMPLE COMMANDS,MOVES ALL EXTREMITIES,CLEAR UPPER LUNGS SOUND DIMINISHED ON THE BASES,BLOODY/THICK SECRTIONS MODERATE AMOUNT,A/C VENT MODE FIO2=40%,U6UGZ=60%,LT UPPER FRONTAL CHEST TUBE TO -20 CM H2O SUCTION,S.S DRAINAGE. FOLLOW UP:CONTINUE TO MONITOR PATIENT'S RESPIRATORY AND HEMODYNAMIC STATOS CLOSELY.
--- NOTE | 2016-11-23 11:00 | NUR ---
A - NUTRITION FOLLOW-UP S/P PERICARDIAL WINDOW 11/22, EXTUBATED IN PACU, TX TO ICU, RE-INTUBATED. EXTUBATED AGAIN THIS AM. L) CHEST TUBE. BX OF MASS TAKEN 11/21, WAITING FOR PATHOLOGY REPORT. LABS: GLU 132, ALB 2.2, AST 310, ALT 172, CRP 9.57 NEW MEDS: PEPCID, REGLAN, ZOFRAN, LASIX. DIET: REGULAR. INTAKE REF-25% X5 MEALS. PT DENIED DIFFICULTY SWALLOWING. PT WAS GETTING ENSURE ENLIVE BID, LIKES CHOCOLATE FLAVOR. ENCOURAGED PO INTAKE. EST NEEDS: [id number] KCAL, 94-109 GRAMS PROTEIN, FLUID NEEDS: 1ML/KCAL D - INADEQUATE ORAL INTAKE RELATED TO DECREASED APPETITE EVIDENCED BY PO REF-25% X5 MEALS. I - PT AGREED TO CONTINUE RECEIVING ENSURE ENLIVE BID. M/E - GOAL: PT WILL BE ABLE TO TOLERATE >50% OF MEALS AND AT LEAST ONE ORAL SUPPLEMENT PER DAY IN 4-6 DAYS.
--- NOTE | 2016-11-23 13:30 | NUR ---
Talked to patient, her mother and a ANDREW. Patient says she is tired today, but her breathing is much better today. She still hopes to be able to go home when ready for discharge. Will follow.
--- NOTE | 2016-11-23 17:11 | NUR ---
PT WAS VENTED IN THE AM POST SURGERY, PATIENT WAS WEANED TO CPAP 5/, NIF -36, VC 836, ONCE PT WAS AWAKE AND FOLLOWING COMMANDS PT WAS EXTUBATED, PT WAS EXTUBATED AT 0925 AND PLACED ON 4L NC, BREATHINGS TREATMENTS STARTED PER CABG PROTOCOL
--- NOTE | 2016-11-23 18:10 | NUR ---
D:Qian BLUE called report at 1710. Was going to check with Dr. Osorio about art line. Patient arrived at 1750 per wheelchair with transport. Art Line is out. Patient has NS infusing at 50 ml/hr. Patient able to transfer to bed with minimal difficulty, stand by assist. Has KLAUDIA to left side, having serosang drainage. Dressing to left chest are dry and intact. Patient has O2 on at 2L O2. Family here. Patient resting in bed with HOB elevated. Long was dc'd before report called, had voided once, 40 ml. Patient is alert and orientated. Patient in NSR with occassional PVC's, PAC's. Had been in Afib. P:Monitor resp status, and monitor heart rhythm.
--- NOTE | 2016-11-23 20:02 | NUR ---
SIGNIFICANT EVENT: PATIENT ALERT, ORIENTED X3. SPEECH IS CLEAR AND APPROPRIATE. FOLLOWS COMMANDS IN ALL 4 EXTREMITIES. MOVES ALL 4 EXTREMITIES SPONTANEOUSLY, EQUAL STRENGTH THROUGHOUT. PATIENT DENIES NUMBNESS, TINGLING, GENEREALIZED PAIN OR CHEST PAIN. NO FACIAL ASYMMETRY. PATIENT AMBULATES WITH A STAND BY ASSIST. PATIENT HAS BEEN IN SINUS RHYTHM, SOME BIGEMONY AND A BURST OF AFIB THEN BACK TO SR THROUGHOUT THE SHIFT. HR 80-90S. PULSES PALPABLE THROUGHUT. AMIODARONE GTT PER PROTOCOL D/C AT AROUND 11, PO AMIODARONE INITIATED. PATIENT DENIES NUMBNESS, TINGLING, OR PAIN. PATIENT'S BP STABLE, SBP>90 AND MAP>65. MAX TEMP OF 100.2 AT THE BEGINGING OF THE SHIFT, AFEBRILE NOW. PATINET EXTUBATED AT 0925 THIS AM TO 2L NASAL CANNULA, SATS MID 90S. SPONT, PRODUCTIVE COUGH, BLOOD TENGED/CREAMY AT TIMES, MD LIRIANO. PATIENT UTLIZED FLUTTER VALVE AND IS Q HOUR WITH REMINDERS WHILE AWAKE. BOWEL SOUNDS PRESENT, SOFT DIET, TOLERATING WELL. BAE D/C, SMALL POST VOID. NO NEW SKIN ISSUES. BATH COMPLETED. REPOSITIONED EVERY 2 HOURS. BEDSIDE REPORT COMPLETED WITH COURT SUPERVISOR, ALL BELONGINGS SENT WITH PATIENT. PATIENT IN STABLE CONDITION. FAMILY AND PATIENT VOICE NO CONCERNS
--- NOTE | 2016-11-24 04:10 | NUR ---
Significant Event: A/0X3. RESTED IN BED ALL OF SHIFT. TURNS SELF. AFEBRILE. VSS ON 2L. NORCO GIVEN X2 AND TYLENOL X1. PATIENT WAS ABLE TO FIND SOME RELIEF AND REST OFF AND ON THROUGHOUT THE SHIFT. IV TO L) HAND HAS NS @ 50 ML/H AND ZOSYN RUNNING. IV TO R) AC SL. PATIENT COUGHED OFF AND ON THROUGHOUT THE NIGHT. REFUED TESSALON PEARLS. VOIDS FINE. NO C/O OF BURNING OR TROUBLE URINATING. NO BM THIS SHIFT. GAVE MOM X1. KLAUDIA HAD 70 MLS OF SEROSEANGUINEOUS DRAINAGE OUT. Follow up: CONTINUE [facility] PLAN OF CARE.
[2016-11-24 05:30] LABS: BASOPHIL # 0.1 K/uL (0.0-0.2); BASOPHIL % 0.4 %; EOSINOPHIL % 0.1 %; HEMOGLOBIN 10.8 g/dL (10.0-15.0); IMMATURE GRANULOCYTE # 0.4 K/uL (0.0-0.3); IMMATURE GRANULOCYTE % 2.2 %; LYMPHOCYTE # 1.8 K/uL (0.8-4.0); LYMPHOCYTE % 10.7 %; MCH 32.2 pg (27.0-34.0); MCHC 33.8 gm/dL (32.0-36.5); MCV 95.5 fl (83.0-98.0); MONOCYTE # 1.2 K/uL (0.0-1.0); MONOCYTE % 6.8 %; MPV 12.1 fl (9.4-12.4); NEUTROPHIL # (ANC) 13.5 K/uL (1.8-7.8); NEUTROPHIL % 79.8 %; NRBC % 0.7 /100WBC (0-0.00); PLATELET COUNT 228 K/uL (150-450); RBC 3.35 M/uL (3.50-5.50); RDW-CV 14.1 % (11.9-14.6)
[2016-11-24 05:49] LABS: ALBUMIN 2.2 gm/dL (3.5-5.0); ALK PHOS 89 IU/L (33-138); ALT 104 IU/L (12-78); ANION GAP 9.9 (10.0-19.0); AST 120 IU/L (10-40); BLOOD UREA NITROGEN 12 mg/dL (6-24); CALCIUM 8.6 mg/dL (8.5-10.5); CHLORIDE 106 mMol/L (96-110); CO2 27 mMol/L (22-32); CREATININE 0.5 mg/dL (0.5-1.1); ESTIMATED GFR (MDRD EQUATION) > 60; MAGNESIUM 2.4 mg/dL (1.8-2.6); POTASSIUM 3.9 mMol/L (3.7-5.1); SODIUM 139 mMol/L (135-145); TOTAL BILIRUBIN 0.4 mg/dL (0.0-1.5); TOTAL PROTEIN 6.1 g/dL (6.0-8.4)
--- NOTE | 2016-11-24 16:23 | NUR ---
Significant Event: A/OX3, VSS ON 2L PER NC. NORCO GIVEN X1 @ 1034 FOR PAIN, ATIVAN GIVEN @ 1201. IV'S REMAIN TO R)AC & L)HAND HAS NS @ 100ml/HR X1 LITER. PT. NEEDS A NEW IV FOR CHEMO BY TOMORROW TO FOREARMS OR UPPER ARMS. DRESSING TO STERNUM IS C/D/I, ONLY 20mL OUT KLAUDIA DRAIN. PT. GETS UP SBA TO BATHROOM, DANGLED @ BEDSIDE FOR PART OF THE DAY. PT. WILL HAVE A BONE SCAN DONE ON SUNDAY, HAD MRI OF BRAIN TODAY. WILL START CHEMOTHERAPY IN AM @ 0900. RESTED ON/OFF THROUGHOUT THE SHIFT. Follow up: CHEMO IN AM, NEW IV.
[2016-11-25 04:07] LABS: ALBUMIN 2.1 gm/dL (3.5-5.0); ALK PHOS 101 IU/L (33-138); ALT 101 IU/L (12-78); ANION GAP 10.7 (10.0-19.0); AST 109 IU/L (10-40); BLOOD UREA NITROGEN 10 mg/dL (6-24); CALCIUM 8.3 mg/dL (8.5-10.5); CHLORIDE 102 mMol/L (96-110); CO2 26 mMol/L (22-32); CREATININE 0.6 mg/dL (0.5-1.1); ESTIMATED GFR (MDRD EQUATION) > 60; MAGNESIUM 2.3 mg/dL (1.8-2.6); POTASSIUM 3.7 mMol/L (3.7-5.1); SODIUM 135 mMol/L (135-145); TOTAL BILIRUBIN 0.7 mg/dL (0.0-1.5); TOTAL PROTEIN 6.2 g/dL (6.0-8.4)
--- NOTE | 2016-11-25 06:34 | NUR ---
Significant event: A/O x 3. Up in room with 1 assist. Ativan x 1 for anxiety. cough syrup x 1. New IV to forearm for chemo that is to start today. on 3L NC with sats in the low 90's. 20ml out the carolee drain.
--- NOTE | 2016-11-25 11:36 | NUR ---
D:Orders received for patient to receive chemotherapy - taxol and carboplatin. I:The patient was informed of the plan and agreed to proceed and signed the Consent to Receive Anti-Cancer Medications. The Anti-Cancer Drug Administration Checklist was completed. Drug labels were completed by pharmacy and sent to floor and double checked by nursing. The patient had received teaching on the plan and the drugs by Taylor the nurse navigator for [facility]. Krames sheets given to and reviewed with the patient on taxol and carboplatin. Orders for premedications of aloxi, emend and dexamethasone had been written but none for benadryl or pepcid for the taxol. MD was called and orders received for benadryl and ranitidine as well as an ok to use the hypersensitivity protocol if condition warrented. The patient had a new left anterior forearm IV site had been started by PCU staff. IV site was checked and good blood return was present. The patient was instructed to notify nurse immediately if IV site started to burn, itch, swell. Premedications were given and taxol was titrated per policy. R:The patient is tolerating taxol infusion fine thus far. See Frequent Vitals and Titration Flowsheet for further details. P:Continue to monitor patient throughout chemo infusions. [place]ell BLUE
--- NOTE | 2016-11-25 16:47 | NUR ---
Significant Event: PT A&O x3. VSS, O2 at 4L per nasal cannula. IV patent to L)FA and R)AC. PT ambulates with 1 assist. Chemo this shift, PT is now on chemo precautions. Pain well controlled with norco 1 tab last at 1530, cough medicine last at 1530. KLAUDIA drain removed this shift by . SOB with activity and at rest. Follow up:
[2016-11-26 03:33] LABS: BASOPHIL % 0.3 %; HEMATOCRIT 31.2 % (33.0-46.0); HEMOGLOBIN 10.5 g/dL (10.0-15.0); IMMATURE GRANULOCYTE # 0.3 K/uL (0.0-0.3); IMMATURE GRANULOCYTE % 2.2 %; LYMPHOCYTE # 0.8 K/uL (0.8-4.0); LYMPHOCYTE % 5.1 %; MCH 32.3 pg (27.0-34.0); MCHC 33.7 gm/dL (32.0-36.5); MONOCYTE # 0.3 K/uL (0.0-1.0); MONOCYTE % 2.1 %; MPV 12.7 fl (9.4-12.4); NEUTROPHIL # (ANC) 13.3 K/uL (1.8-7.8); NEUTROPHIL % 90.3 %; NRBC % 0.6 /100WBC (0-0.00); PLATELET COUNT 177 K/uL (150-450); RBC 3.25 M/uL (3.50-5.50); RDW-CV 14.1 % (11.9-14.6); WBC 14.7 K/uL (4.0-11.0)
[2016-11-26 03:55] LABS: ALBUMIN 2.1 gm/dL (3.5-5.0); ALK PHOS 102 IU/L (33-138); ALT 100 IU/L (12-78); ANION GAP 11.7 (10.0-19.0); AST 123 IU/L (10-40); CALCIUM 7.8 mg/dL (8.5-10.5); CHLORIDE 103 mMol/L (96-110); CO2 26 mMol/L (22-32); CREATININE 0.8 mg/dL (0.5-1.1); ESTIMATED GFR (MDRD EQUATION) > 60; MAGNESIUM 2.2 mg/dL (1.8-2.6); POTASSIUM 3.7 mMol/L (3.7-5.1); SODIUM 137 mMol/L (135-145); TOTAL BILIRUBIN 0.6 mg/dL (0.0-1.5); TOTAL PROTEIN 6.3 g/dL (6.0-8.4)
[2016-11-26 03:58] LABS: BLOOD UREA NITROGEN 16 mg/dL (6-24)
[2016-11-26 05:12] LABS: BICARBONATE 28.5 mmol/L (18.0-23.0); PCO2 46 mmHg (35-45)
[2016-11-26 05:13] LABS: PO2 59 mmHg (80-90)
--- NOTE | 2016-11-26 05:18 | NUR ---
Significant Event: Pt A&Ox3. Pt's respiratory needs have increased throughout the night. Pt's LS were very coarse with inspiratory and expiratory wheezes. Gave a total of 60mg of Lasix with low results. Pt having difficulty with recovering from activity. Near the end of the night, pt was on 6L to get sats to low to mid 90's. Put dotson in pt and got STAT ABG's. Dr. Ny decided to put pt on BiPAP d/t work of breathing. PIV in RFA, SL; int ABx. Follow up: Continue BiPAP. Monitor UOP. Continue plan of care.
--- NOTE | 2016-11-26 16:46 | NUR ---
Significant Event: A/OX3, VSS ON BIPAP @ 40%-FIO2 & 12/5, PT. DID COME OFF BIPAP @ LUNCH TIME AND WENT ON HIGH-FLOW FOR ABOUT 30 MINUTES. PT. DESATS QUICKLY WHEN OFF OF BIPAP. LS ARE COARSE THROUGHOUT, CHEST XRAY DONE THIS AFTERNOON, GIVING 40mg OF IVP LASIX. NORCO GIVEN @ 1022 FOR PAIN. PT. GETS UP SELF-SBA TO BSC, NO BM TODAY. BAE INTACT WITH 650ml UOP. FAMILY HERE TODAY. PT. MAY SHOWER WHEN ABLE. CHEST INCISION IS CLOSED/GLUED AND KLAUDIA SITE IS OPEN TO AIR. PT. ON CHEMO PRECAUTIONS. IV TO R)FA HAS IV ABX'S. Follow up: CONTINUE WITH POC.
[2016-11-27 03:00] LABS: BICARBONATE 30.3 mmol/L (18.0-23.0); PCO2 50 mmHg (35-45); PO2 66 mmHg (80-90)
--- NOTE | 2016-11-27 04:55 | NUR ---
Significant Event: Pt A&O. Had increased confusion during 3rd assessment. Did not know where she was, but did reorientate. Had been fidgeting with mask. Needs to keep BiPAP on at all times d/t sats dropping to 70's. On 3rd assessment noticed "bubbling" sounds in RML. Notified MD as pt started at 65% O2 at beginning of shift and 70% at end. Did STAT ABG's which showed slight changes. MD added PRN IV Ativan. Once IV PRN given, resting comfortably. Alves patent draining yellow urine. VS remained stable. No real c/o pain. Has been flipping in and out of Afib, per tele, throughout night. Follow up: Continue plan of care. Address changes in LS with day MD's.
[2016-11-27 05:01] LABS: HEMATOCRIT 31.5 % (33.0-46.0); HEMOGLOBIN 10.6 g/dL (10.0-15.0); MCH 32.8 pg (27.0-34.0); MCHC 33.7 gm/dL (32.0-36.5); MCV 97.5 fl (83.0-98.0); MPV 13.1 fl (9.4-12.4); PLATELET COUNT 155 K/uL (150-450); RBC 3.23 M/uL (3.50-5.50); RDW-CV 14.2 % (11.9-14.6)
[2016-11-27 05:06] LABS: WBC 18.3 K/uL (4.0-11.0)
[2016-11-27 05:26] LABS: ALK PHOS 102 IU/L (33-138); ALT 96 IU/L (12-78); AST 151 IU/L (10-40); CALCIUM 8.1 mg/dL (8.5-10.5); CHLORIDE 102 mMol/L (96-110); CO2 27 mMol/L (22-32); CREATININE 0.6 mg/dL (0.5-1.1); ESTIMATED GFR (MDRD EQUATION) > 60; MAGNESIUM 2.4 mg/dL (1.8-2.6); SODIUM 138 mMol/L (135-145); TOTAL BILIRUBIN 0.6 mg/dL (0.0-1.5); TOTAL PROTEIN 6.2 g/dL (6.0-8.4)
[2016-11-27 05:27] LABS: BLOOD UREA NITROGEN 26 mg/dL (6-24)
[2016-11-27 05:59] LABS: ABSOLUTE NEUTROPHIL CT (ANC) 18.1 K/uL (1.8-7.8); BANDED NEUTROPHIL # 0.9 K/uL (0.0-0.1); BANDED NEUTROPHILS % 5 %; LYMPHOCYTE # 0.2 K/uL (0.8-4.0); LYMPHOCYTE % 1 %; SEGMENTED NEUTROPHIL # 17.2 K/uL (1.8-7.8); SEGMENTED NEUTROPHIL % 94 %
--- NOTE | 2016-11-27 17:53 | NUR ---
Significant Event: A/O HAS SOME CONFUSION THROUGHOUT THE DAY. REMOVED MASK SEVERAL TIMES, VERY RESTLESS. PRN ATIVAN GIVEN AND NORCO X1 IN THE AM. 40MG LASIX GIVEN, PATIENT TAKEN TO HAVE BODY SCAN AND CXR, PRN ATIVAN GIVEN FOR AGGITATION/RESTLESSNESS. PATIENT HAD A THORACENTISIS THIS AFTERNOON, WITH 1100 IN FLUID REMOVED. PATIENT REFUSES NICOTINE PATCH. SATS 94% BIPAP FIO2 75%. Follow up: FOLLOW CARE PLAN.
[2016-11-28 04:43] LABS: HEMATOCRIT 28.4 % (33.0-46.0); HEMOGLOBIN 9.3 g/dL (10.0-15.0); MCH 31.8 pg (27.0-34.0); MCHC 32.7 gm/dL (32.0-36.5); MCV 97.3 fl (83.0-98.0); MPV 13.4 fl (9.4-12.4); RBC 2.92 M/uL (3.50-5.50); RDW-CV 14.3 % (11.9-14.6); WBC 9.6 K/uL (4.0-11.0)
[2016-11-28 04:46] LABS: PLATELET COUNT 110 K/uL (150-450)
[2016-11-28 05:04] LABS: ALK PHOS 94 IU/L (33-138); ALT 77 IU/L (12-78); ANION GAP 10.1 (10.0-19.0); AST 113 IU/L (10-40); BLOOD UREA NITROGEN 32 mg/dL (6-24); CALCIUM 7.8 mg/dL (8.5-10.5); CHLORIDE 103 mMol/L (96-110); CO2 30 mMol/L (22-32); CREATININE 0.6 mg/dL (0.5-1.1); ESTIMATED GFR (MDRD EQUATION) > 60; MAGNESIUM 2.5 mg/dL (1.8-2.6); POTASSIUM 4.1 mMol/L (3.7-5.1); SODIUM 139 mMol/L (135-145); TOTAL BILIRUBIN 0.5 mg/dL (0.0-1.5); TOTAL PROTEIN 5.6 g/dL (6.0-8.4)
[2016-11-28 05:15] LABS: ALBUMIN 1.9 gm/dL (3.5-5.0)
--- NOTE | 2016-11-28 05:18 | NUR ---
A/O. FORGETFULL AT TIMES. STATES SHE IS IN [place]. HR 70-90s. SBP 110-130s. AFEBRILE. BIPAP AT ALL TIMES ON 80% SATS LOW TO MID 90s. ATIVAN PO/IV GIVENx3. NORCOx1. ZOFRANx1. 1A UP TO COMMODE. BAE INTACT.
[2016-11-28 06:11] LABS: ABSOLUTE NEUTROPHIL CT (ANC) 9.2 K/uL (1.8-7.8); BANDED NEUTROPHIL # 0.1 K/uL (0.0-0.1); BANDED NEUTROPHILS % 1 %; LYMPHOCYTE # 0.3 K/uL (0.8-4.0); LYMPHOCYTE % 3 %; MONOCYTE # 0.1 K/uL (0.0-1.0); SEGMENTED NEUTROPHIL # 9.1 K/uL (1.8-7.8); SEGMENTED NEUTROPHIL % 95 %
--- NOTE | 2016-11-28 18:45 | NUR ---
Significant Event: ALERT & NOT ORIENTED TO PLACE, FORGETFUL. ANXIOUS AT TIMES. REPORTS FEELING SOB DESPITE SATS 97-100% ON BIPAP 70% FIO2. LUNGS COARSE THROUGHOUT. UP TO COMMODE SBA. BAE WITH [place] RED/BLOODY URINE, CLEARED UP TOWARDS SHIFT CHANGE. NORCO AND PO ATIVAN GIVEN X2. VSS, AFEBRILE. Follow up: RESPIRATORY STATUS
[2016-11-29 03:58] LABS: HEMATOCRIT 28.3 % (33.0-46.0); HEMOGLOBIN 9.4 g/dL (10.0-15.0); MCH 32.5 pg (27.0-34.0); MCHC 33.2 gm/dL (32.0-36.5); MCV 97.9 fl (83.0-98.0); MPV 13.3 fl (9.4-12.4); PLATELET COUNT 90 K/uL (150-450); RBC 2.89 M/uL (3.50-5.50); RDW-CV 14.3 % (11.9-14.6); WBC 9.4 K/uL (4.0-11.0)
[2016-11-29 04:19] LABS: ALK PHOS 75 IU/L (33-138); ALT 64 IU/L (12-78); ANION GAP 8.8 (10.0-19.0); AST 82 IU/L (10-40); BLOOD UREA NITROGEN 28 mg/dL (6-24); CALCIUM 7.8 mg/dL (8.5-10.5); CHLORIDE 102 mMol/L (96-110); CO2 31 mMol/L (22-32); CREATININE 0.5 mg/dL (0.5-1.1); ESTIMATED GFR (MDRD EQUATION) > 60; MAGNESIUM 2.5 mg/dL (1.8-2.6); POTASSIUM 4.8 mMol/L (3.7-5.1); SODIUM 137 mMol/L (135-145); TOTAL BILIRUBIN 0.6 mg/dL (0.0-1.5); TOTAL PROTEIN 5.4 g/dL (6.0-8.4)
[2016-11-29 04:21] LABS: ALBUMIN 1.9 gm/dL (3.5-5.0)
--- NOTE | 2016-11-29 04:47 | NUR ---
Significant event: On bipap at 65% patient takes mask off impulsively and sats drop quickly without the bipap. she keeps reaching for her water glass and within 30seconds of her mask being off her sats drop down to the 70's. Alves intact with 550 ml of yellow urine out. [place] x 2 ativan po x 1 and IV x 1 given.
[2016-11-29 05:20] LABS: ABSOLUTE NEUTROPHIL CT (ANC) 9.1 K/uL (1.8-7.8); BANDED NEUTROPHIL # 0.8 K/uL (0.0-0.1); BANDED NEUTROPHILS % 8 %; LYMPHOCYTE # 0.2 K/uL (0.8-4.0); LYMPHOCYTE % 2 %; SEGMENTED NEUTROPHIL # 8.4 K/uL (1.8-7.8); SEGMENTED NEUTROPHIL % 89 %
--- NOTE | 2016-11-29 18:54 | NUR ---
Significant Event: VSS. BIPAP MOST OF SHIFT, TITRATED TO HI-FLOW NC @ 56%. LUNGS COARSE T/O. PRODUCTIVE HARSH COUGH. IV TO RIGHT WRIST SL'D. ANXIOUS AT TIMES, ATIVAN 1 MG IV GIVEN X1 THIS AM. FAMILY AT BEDSIDE MOST OF SHIFT. BAE PATENT WITH 1050 ML UOP. C/O PAIN TO THROAT/CHEST, NORCO 1 TAB GIVEN X2. Follow up:
[2016-11-30 03:26] LABS: HEMATOCRIT 30.3 % (33.0-46.0); HEMOGLOBIN 10.1 g/dL (10.0-15.0); MCH 32.4 pg (27.0-34.0); MCHC 33.3 gm/dL (32.0-36.5); MCV 97.1 fl (83.0-98.0); MPV 13.5 fl (9.4-12.4); PLATELET COUNT 83 K/uL (150-450); RBC 3.12 M/uL (3.50-5.50); RDW-CV 14.2 % (11.9-14.6); WBC 7.5 K/uL (4.0-11.0)
[2016-11-30 03:42] LABS: ALBUMIN 2.1 gm/dL (3.5-5.0); ALK PHOS 72 IU/L (33-138); ALT 53 IU/L (12-78); ANION GAP 13.6 (10.0-19.0); AST 67 IU/L (10-40); BLOOD UREA NITROGEN 25 mg/dL (6-24); CALCIUM 7.9 mg/dL (8.5-10.5); CHLORIDE 98 mMol/L (96-110); CO2 30 mMol/L (22-32); CREATININE 0.5 mg/dL (0.5-1.1); ESTIMATED GFR (MDRD EQUATION) > 60; MAGNESIUM 2.3 mg/dL (1.8-2.6); POTASSIUM 4.6 mMol/L (3.7-5.1); SODIUM 137 mMol/L (135-145); TOTAL BILIRUBIN 0.5 mg/dL (0.0-1.5); TOTAL PROTEIN 5.5 g/dL (6.0-8.4)
--- NOTE | 2016-11-30 04:55 | NUR ---
Significant Event: Patient alert and oriented. Forgetful and confusion after IV ativan at times. Rested in bed. Repositions self and sits up to edge of bed on own. Alves patent with 1125 urine output this shift. On hi-valarie nasal cannula until 2300 then bipap at 50% FIO2. [place] given x2 and IVP ativan given x3. Patient becomes anxious and sits up to edge of bed and takes bipap mask off. Rests well after ativan given. Pleasant and cooperative with cares. Follow up: continue to monitor
[2016-11-30 05:17] LABS: ABSOLUTE NEUTROPHIL CT (ANC) 6.8 K/uL (1.8-7.8); LYMPHOCYTE # 0.5 K/uL (0.8-4.0); LYMPHOCYTE % 7 %; MONOCYTE # 0.2 K/uL (0.0-1.0); SEGMENTED NEUTROPHIL # 6.8 K/uL (1.8-7.8); SEGMENTED NEUTROPHIL % 91 %
--- NOTE | 2016-11-30 08:51 | NUR ---
A - PT ON BIPAP. GLU 106, BUN/MANUFACTURER REPRESENTATIVE 25/0.5, ALB 2.1. PT W/ 2+ BLE EDEMA. NO NEW WT. DIET: REGULAR W/ ENSURE BID W/ BF AND DINNER. NO INTAKE D/T DECREASED RESPIRATORY STATUS. EN RECOMMENDED PAPER CHART 11/27. D - AT RISK W/ INADEQUATE ORAL INTAKE R/T RESPIRATORY STATUS/SOB AEB INTAKE RECORD. I - GOAL: ALTERNATE FEEDING ROUTE. M/E - REC [place] 1.5 AT 60 ML/HR = 2160 KCALS, 90 GM PROTEIN, 1097 ML FREE H20. IF PT CAN TOLERATE HI-FLOW NC DURING MEALS, ENCOURAGE ENSURE TO MAXIMIZE INTAKE. WILL F/U IN 2-4 DAYS.
--- NOTE | 2016-11-30 17:01 | NUR ---
Patient is A/O with occasional inappropriate comments made. Restless at times going from lying in bed to sitting on the edge of the bed/supporting self with overbed table. Patient worked with PT/OT and sat in the recliner chair x 2 hours. BiPap 10/5 50% till 0830 today then High Flow O2 55%. Harsh, dry cough noted. Poor appetite-ate bites of lunch and drank Ensure x 1. Alves patent with >2000 ml out. [place] given x 2 this shift and po Ativan given x 1.
[2016-12-01 04:10] LABS: HEMATOCRIT 31.5 % (33.0-46.0); HEMOGLOBIN 10.4 g/dL (10.0-15.0); MCH 32.3 pg (27.0-34.0); MCV 97.8 fl (83.0-98.0); MPV 14.1 fl (9.4-12.4); RBC 3.22 M/uL (3.50-5.50)
[2016-12-01 04:14] LABS: PLATELET COUNT 65 K/uL (150-450); WBC 1.7 K/uL (4.0-11.0)
[2016-12-01 04:27] LABS: ALBUMIN 1.9 gm/dL (3.5-5.0); ALK PHOS 60 IU/L (33-138); ALT 42 IU/L (12-78); ANION GAP 9.4 (10.0-19.0); AST 54 IU/L (10-40); BLOOD UREA NITROGEN 20 mg/dL (6-24); CHLORIDE 99 mMol/L (96-110); CO2 32 mMol/L (22-32); CREATININE 0.4 mg/dL (0.5-1.1); ESTIMATED GFR (MDRD EQUATION) > 60; MAGNESIUM 2.1 mg/dL (1.8-2.6); POTASSIUM 4.4 mMol/L (3.7-5.1); SODIUM 136 mMol/L (135-145); TOTAL BILIRUBIN 0.5 mg/dL (0.0-1.5)
--- NOTE | 2016-12-01 04:33 | NUR ---
Significant events: Pt A/Ox3. VSS, SBP 100-120's, HR 70's, on 4L/NC. IV ativan for SOB/anxiety. Alves in place, 1200 out. Dangle at side of bed frequently. Slept well. No complaints of pain.
[2016-12-01 04:51] LABS: ABSOLUTE NEUTROPHIL CT (ANC) 1.2 K/uL (1.8-7.8); BANDED NEUTROPHIL # 0.1 K/uL (0.0-0.1); BANDED NEUTROPHILS % 8 %; LYMPHOCYTE # 0.5 K/uL (0.8-4.0); LYMPHOCYTE % 28 %; SEGMENTED NEUTROPHIL # 1.1 K/uL (1.8-7.8); SEGMENTED NEUTROPHIL % 63 %
--- NOTE | 2016-12-01 13:00 | NUR ---
Spoke with patient and her mother. Plan is home when ready for discharge. She says she doesn't want to have go anywhere else if possible. Will follow.
--- NOTE | 2016-12-01 18:55 | NUR ---
Patient is A/O. She frequently repositions herself from lying to sitting on the edge of the bed. O2 decreased to 2 L/NC with SpO2 90-95%. Patient continues to desat quickly with activity but rises easily with rest. Alves with good output noted. Patient reports that her pain is adequately controlled.
[2016-12-02 03:24] LABS: HEMATOCRIT 30.7 % (33.0-46.0); HEMOGLOBIN 10.4 g/dL (10.0-15.0); MCH 32.2 pg (27.0-34.0); MCHC 33.9 gm/dL (32.0-36.5); RBC 3.23 M/uL (3.50-5.50); RDW-CV 13.8 % (11.9-14.6)
[2016-12-02 03:29] LABS: PLATELET COUNT 45 K/uL (150-450); WBC 0.8 K/uL (4.0-11.0)
[2016-12-02 03:44] LABS: ALK PHOS 58 IU/L (33-138); ALT 36 IU/L (12-78); ANION GAP 7.9 (10.0-19.0); AST 48 IU/L (10-40); BLOOD UREA NITROGEN 16 mg/dL (6-24); CALCIUM 7.8 mg/dL (8.5-10.5); CHLORIDE 101 mMol/L (96-110); CO2 31 mMol/L (22-32); CREATININE 0.5 mg/dL (0.5-1.1); ESTIMATED GFR (MDRD EQUATION) > 60; MAGNESIUM 1.9 mg/dL (1.8-2.6); POTASSIUM 3.9 mMol/L (3.7-5.1); SODIUM 136 mMol/L (135-145); TOTAL PROTEIN 5.2 g/dL (6.0-8.4)
[2016-12-02 03:53] LABS: ALBUMIN 1.9 gm/dL (3.5-5.0); TOTAL BILIRUBIN 0.7 mg/dL (0.0-1.5)
[2016-12-02 04:08] LABS: ABSOLUTE NEUTROPHIL CT (ANC) 0.2 K/uL (1.8-7.8); BANDED NEUTROPHILS % 2 %; LYMPHOCYTE # 0.5 K/uL (0.8-4.0); LYMPHOCYTE % 66 %; SEGMENTED NEUTROPHIL # 0.2 K/uL (1.8-7.8); SEGMENTED NEUTROPHIL % 24 %
--- NOTE | 2016-12-02 05:15 | NUR ---
Significant Event: A/O, SBP 99-120s, HR 70s, 3-4L O2, lungs clear/dim to bases, denies SOB, afebrile, [place] given x2 with slight pain relief, PO Ativan x1, patient slept throughout night, small incontinent stool with harsh coughing, loose/brown, dotson had 1525 ml out, refused supper, Zosyn to R)wrist, SBA to bsc Follow up:continue plan of care
--- NOTE | 2016-12-02 17:11 | NUR ---
Patient is A/O. She says that she feels less anxious today. O2 2-3 L/NC depending on if she is more active or not. SR per telemetry. Up to the chair x 2 for 2 hrs each time. Eating small amounts of food today and taking in Ensure x 1. Alves with adquate urine output noted. [place] given x 1 and po Ativan given x 1. Placed in neutropenic precautions d/t WBC of 0.8. All incision sites are STOCK ORDER LISTER and healing.
[2016-12-03 04:51] LABS: EOSINOPHIL % 3.8 %; HEMATOCRIT 27.9 % (33.0-46.0); HEMOGLOBIN 9.7 g/dL (10.0-15.0); LYMPHOCYTE # 0.5 K/uL (0.8-4.0); LYMPHOCYTE % 88.5 %; MCH 32.4 pg (27.0-34.0); MCHC 34.8 gm/dL (32.0-36.5); MCV 93.3 fl (83.0-98.0); MONOCYTE % 3.8 %; MPV 13.7 fl (9.4-12.4); NEUTROPHIL % 3.9 %; NRBC % 0 /100WBC (0-0.00); RBC 2.99 M/uL (3.50-5.50); RDW-CV 13.7 % (11.9-14.6)
[2016-12-03 05:04] LABS: PLATELET COUNT 28 K/uL (150-450); WBC 0.5 K/uL (4.0-11.0)
[2016-12-03 05:12] LABS: ALK PHOS 59 IU/L (33-138); ALT 33 IU/L (12-78); ANION GAP 10.3 (10.0-19.0); AST 42 IU/L (10-40); BLOOD UREA NITROGEN 14 mg/dL (6-24); CALCIUM 7.7 mg/dL (8.5-10.5); CHLORIDE 102 mMol/L (96-110); CO2 27 mMol/L (22-32); CREATININE 0.4 mg/dL (0.5-1.1); ESTIMATED GFR (MDRD EQUATION) > 60; MAGNESIUM 1.8 mg/dL (1.8-2.6); POTASSIUM 3.3 mMol/L (3.7-5.1); SODIUM 136 mMol/L (135-145); TOTAL BILIRUBIN 0.8 mg/dL (0.0-1.5); TOTAL PROTEIN 5.3 g/dL (6.0-8.4)
--- NOTE | 2016-12-03 05:15 | NUR ---
Significant event: Patient had 5 loose stools throughout the night. Alves intact with 650ml of UOP. [place] given x 1 with releif noted. up in wheelchair several times throughout the night to reposition self. continues on 2L nc with sats in the mid to upper 90's.
--- NOTE | 2016-12-03 16:30 | NUR ---
Patient had 10 loose brown stools this shift. Stool sent to lab and is negative for C Diff, O/P, and WBC. Buttocks red-protective ointment applied frequently. Up frequently to w/c for repositioning. Walked 10 steps in the room with fair tolerance. O2 2 L/NC with SpO2 in mid to upper 90's. [place] and po Ativan given x 1 with good relief noted. Alves patent with 550 of dark jake urine noted. Patient not eating much today but drinking large amounts of water.
--- NOTE | 2016-12-04 00:14 | NUR ---
Significant Event: Drowsy, but awakens to voice easily. Oriented X3, but forgetful at times. BP 84/44 with first assessment. 500ml NS IV bolus given. SBP 101, 105 after bolus. 2L NC. Lungs clear/dim to slightly coarse. Continues to have loose stools. No c/o pain. Up with assist, gait belt and walker. Follow up: Report given to Cookie Perez RN at midnight. Continue plan of care.
[2016-12-04 04:17] LABS: HEMATOCRIT 22.8 % (33.0-46.0); MCH 31.7 pg (27.0-34.0); MCHC 35.1 gm/dL (32.0-36.5); MCV 90.5 fl (83.0-98.0); MPV 13.4 fl (9.4-12.4); PLATELET COUNT 28 K/uL (150-450); RBC 2.52 M/uL (3.50-5.50); RDW-CV 13.7 % (11.9-14.6); WBC 0.3 K/uL (4.0-11.0)
[2016-12-04 04:27] LABS: ALK PHOS 72 IU/L (33-138); ALT 30 IU/L (12-78); ANION GAP 13.4 (10.0-19.0); AST 34 IU/L (10-40); BLOOD UREA NITROGEN 11 mg/dL (6-24); CHLORIDE 101 mMol/L (96-110); CO2 22 mMol/L (22-32); CREATININE 0.5 mg/dL (0.5-1.1); ESTIMATED GFR (MDRD EQUATION) > 60; MAGNESIUM 1.3 mg/dL (1.8-2.6); POTASSIUM 3.4 mMol/L (3.7-5.1); SODIUM 133 mMol/L (135-145)
[2016-12-04 04:28] LABS: ALBUMIN 1.8 gm/dL (3.5-5.0)
[2016-12-04 07:58] LABS: LYMPHOCYTE # 0.1 K/uL (0.8-4.0); LYMPHOCYTE % 53.8 %; MONOCYTE # 0.1 K/uL (0.0-1.0); MONOCYTE % 42.3 %; NEUTROPHIL % 3.9 %; NRBC % 0 /100WBC (0-0.00)
--- NOTE | 2016-12-04 13:24 | NUR ---
A - NUTRITION F/U. NA+ 133, K+ 3.4, GLU 101, BUN/MILL ATTENDANT 11/0.5, ALB 1.8. PT DOWN TO O2 1L PER NC. HAVING LOOSE STOOLS. 2+ EDEMA TO BLE. DIET: REGULAR W/ ENSURE TID W/ MEALS. INTAKE VARIES 0-100%. D - AT RISK W/ INADEQUATE INTAKE AT TIMES R/T DECREASED APPETITE AEB INTAKE RECORD. I - GOAL: 50% OR BETTER AVERAGE INTAKE BY NEXT REVIEW. M/E - CONT TO ENCOURAGE ORAL INTAKE. WILL F/U IN 3-5 DAYS.
--- NOTE | 2016-12-04 17:48 | NUR ---
Patient remains in neutropenic precautions with a WBC of 0.8; ANC of 0. O2 2 L/NC with SpO2 92-96%. Frequent harsh dry cough. Continues to eat poorly. Frequent loose brown stools-Lomotil started. [place] x 1 this shift with good relief. Up with 1 SBA/gait belt/walker.
--- NOTE | 2016-12-05 04:27 | NUR ---
SSignificant Event: PATIENT IS DROWSY BUT ORIENTATED X3. SHE APPEARS VERY TIRED. PATIENT HAS HAD MULTIPLE LOOSE BOWEL MOVEMENTS THROUGHOUT NIGHT. IMMODIUM GIVEN AT HS. NORCO AND ATIVAN ALSO ADMINISTERED. NEUTROPENIC PRECAUTIONS. LAST CHEMO ON THE . Follow up: PATIENT WISHES TO RECEIVE A SHOWER TODAY.
[2016-12-05 05:38] LABS: HEMATOCRIT 22.1 % (33.0-46.0); HEMOGLOBIN 7.8 g/dL (10.0-15.0); MCH 32.5 pg (27.0-34.0); MCHC 35.3 gm/dL (32.0-36.5); MCV 92.1 fl (83.0-98.0); MPV 12.4 fl (9.4-12.4); RBC 2.4 M/uL (3.50-5.50); RDW-CV 13.8 % (11.9-14.6); WBC 0.4 K/uL (4.0-11.0)
[2016-12-05 05:46] LABS: ALK PHOS 55 IU/L (33-138); ALT 22 IU/L (12-78); AST 14 IU/L (10-40); CHLORIDE 98 mMol/L (96-110); CO2 21 mMol/L (22-32); CREATININE 0.4 mg/dL (0.5-1.1); ESTIMATED GFR (MDRD EQUATION) > 60; MAGNESIUM 1.5 mg/dL (1.8-2.6); SODIUM 131 mMol/L (135-145)
[2016-12-05 05:48] LABS: ALBUMIN 1.6 gm/dL (3.5-5.0); ANION GAP 14.5 (10.0-19.0); BLOOD UREA NITROGEN 5 mg/dL (6-24); POTASSIUM 2.5 mMol/L (3.7-5.1); TOTAL BILIRUBIN 0.7 mg/dL (0.0-1.5)
--- NOTE | 2016-12-05 19:09 | NUR ---
Patient is A/O. Denies c/o pain. O2 2 L/NC with SpO2 90-96% with it occasionally dropping to 84-90% with activity. Frequent loose brown stools per brief/BSC. IV/PO potasssium given today for K=2.5. Remains in neutropenic precautions. Poor appetite.
[2016-12-06 03:50] LABS: HEMATOCRIT 22.4 % (33.0-46.0); MCV 92.2 fl (83.0-98.0); MPV 12.5 fl (9.4-12.4); RBC 2.43 M/uL (3.50-5.50); RDW-CV 13.8 % (11.9-14.6)
[2016-12-06 03:56] LABS: HEMOGLOBIN 7.8 g/dL (10.0-15.0); MCH 32.1 pg (27.0-34.0); MCHC 34.8 gm/dL (32.0-36.5); PLATELET COUNT 40 K/uL (150-450)
[2016-12-06 04:03] LABS: ALK PHOS 51 IU/L (33-138); ALT 28 IU/L (12-78); ANION GAP 13.9 (10.0-19.0); AST 18 IU/L (10-40); BLOOD UREA NITROGEN 7 mg/dL (6-24); CALCIUM 7.4 mg/dL (8.5-10.5); CHLORIDE 105 mMol/L (96-110); CO2 18 mMol/L (22-32); CREATININE 0.3 mg/dL (0.5-1.1); ESTIMATED GFR (MDRD EQUATION) > 60; MAGNESIUM 1.7 mg/dL (1.8-2.6); POTASSIUM 2.9 mMol/L (3.7-5.1); SODIUM 134 mMol/L (135-145); TOTAL BILIRUBIN 0.7 mg/dL (0.0-1.5)
[2016-12-06 04:04] LABS: ALBUMIN 1.4 gm/dL (3.5-5.0); TOTAL PROTEIN 4.9 g/dL (6.0-8.4)
--- NOTE | 2016-12-06 04:37 | NUR ---
Pt a/o but forgetful. VSS on 2L, afebrile. AM sbp 98/40. am Kcl 2.9. recieved 100meq kcl iv yesterday and 60 po. she is to get 60meq iv and 60meq po this am. She is to have a potassium level drawn 1 hour post iv kcl. remains on neutropenic precautions. WBC 1 this am. [place] given last at 330. Plan: Con't current plan of care- encourage po food intake. has poor appetite lately ? chemo side affect
[2016-12-06 04:41] LABS: ABSOLUTE NEUTROPHIL CT (ANC) 0.6 K/uL (1.8-7.8); BANDED NEUTROPHIL # 0.1 K/uL (0.0-0.1); BANDED NEUTROPHILS % 9 %; LYMPHOCYTE # 0.2 K/uL (0.8-4.0); LYMPHOCYTE % 20 %; MONOCYTE # 0.2 K/uL (0.0-1.0); SEGMENTED NEUTROPHIL # 0.5 K/uL (1.8-7.8); SEGMENTED NEUTROPHIL % 49 %
--- NOTE | 2016-12-06 15:45 | NUR ---
Spoke with patient, S.O. and daughter. She says she is doing better and may get to go home tomorrow. S.O. says he will be gone most of the day at work but her daughter is planning to stay with her. Did talk with them about HHC. S.O. says he had HHC before and thinks it would be good for her. Talked with them about HHC services. Patient says she would be OK with it. Talked to them about options for HHC. SSailajaO. says he had [facility] and he thought they were great. Patient says she doesn't care and [facility] would be fine. Told them I will contact [facility] to see if able to take her on service. Face to face form on chart for physician to complete. Will follow.
--- NOTE | 2016-12-06 16:46 | NUR ---
PATIENT UP TO W/C WITH 1 ASSIST. RECHECKED POTASSIUM AFTER INFUSION COMLETE 20 MEQ PO POTASSIUM X1 ORDERED. GAVE OK FOR PATIENT TO GO OUTSIDE BRIE[place], D/C'D NEUTROPENIC PRECAUTIONS. PATIENT WENT DOWNSTAIRS BRIEFLY WITH FAMILY IN W/C, DID NOT GO OUTSIDE.
[2016-12-07 04:00] LABS: HEMATOCRIT 21.9 % (33.0-46.0); MCV 91.6 fl (83.0-98.0); MPV 12.4 fl (9.4-12.4); RBC 2.39 M/uL (3.50-5.50); RDW-CV 13.9 % (11.9-14.6)
[2016-12-07 04:03] LABS: WBC 1.2 K/uL (4.0-11.0)
[2016-12-07 04:04] LABS: HEMOGLOBIN 7.6 g/dL (10.0-15.0); MCH 31.8 pg (27.0-34.0); MCHC 34.7 gm/dL (32.0-36.5); PLATELET COUNT 39 K/uL (150-450)
[2016-12-07 04:13] LABS: ALK PHOS 53 IU/L (33-138); ALT 46 IU/L (12-78); ANION GAP 11.6 (10.0-19.0); AST 25 IU/L (10-40); BLOOD UREA NITROGEN 7 mg/dL (6-24); CHLORIDE 108 mMol/L (96-110); CO2 21 mMol/L (22-32); CREATININE 0.3 mg/dL (0.5-1.1); ESTIMATED GFR (MDRD EQUATION) > 60; MAGNESIUM 1.6 mg/dL (1.8-2.6); POTASSIUM 3.6 mMol/L (3.7-5.1); SODIUM 137 mMol/L (135-145)
[2016-12-07 04:14] LABS: ALBUMIN 1.3 gm/dL (3.5-5.0); CALCIUM 7.1 mg/dL (8.5-10.5); TOTAL BILIRUBIN 0.5 mg/dL (0.0-1.5); TOTAL PROTEIN 4.4 g/dL (6.0-8.4)
--- NOTE | 2016-12-07 04:38 | NUR ---
Pt a/o but forgetful. SBP 90/40's throughout the night 103 this am. Held bystolic at hs. cont on 2L nc. afebrile. Long remains in place. SL. SBA/bsc. Thrush- nystatin swish and spit started at hs. zofran given at hs. ativan x1. norco x3. c/o of r arm/shoulder pain. plan: ? d/c soon?
[2016-12-07 05:50] LABS: ABSOLUTE NEUTROPHIL CT (ANC) 0.7 K/uL (1.8-7.8); BANDED NEUTROPHIL # 0.2 K/uL (0.0-0.1); BANDED NEUTROPHILS % 17 %; LYMPHOCYTE # 0.3 K/uL (0.8-4.0); LYMPHOCYTE % 28 %; MONOCYTE # 0.2 K/uL (0.0-1.0); SEGMENTED NEUTROPHIL # 0.5 K/uL (1.8-7.8); SEGMENTED NEUTROPHIL % 39 %
[2016-12-07] MEDS ORDERED: CORDARONE,PACE200 MG PO (14:44)
[2016-12-07] MEDS ORDERED: NORCO 5-325 TA1 EACH PO (14:50)
[2016-12-07] MEDS ORDERED: LOPERAMIDE2 MG PO (14:54)
[2016-12-07] MEDS ORDERED: ATIVAN 1 MG1 MG PO (14:57)
[2016-12-07] MEDS ORDERED: ZOFRAN4 MG PO (14:58)
--- NOTE | 2016-12-07 16:22 | NUR ---
D:Patient has been very anxious to go home. Will have home health at home and she is hoping to get therapy at home. Long was dc'd today at 1220, patient reports voiding in large amount when therapies assisted her in going into bathroom. Patient felt is was a large amount and denied any difficulty with voiding. Personal belonging all packed up by daughter. Patient verbelizes understanding of discharge instructions and follow-up appointment with the Dr. Regan. Discharged per wheelchair per [place] [facility], released to family to return home with Home health to follow. Discharged at 1610.
--- NOTE | 2016-12-07 17:03 | NUR ---
Referral to Pam at [facility]. Patient discharging home today. Faxed face to face and discharge orders, etc to Pam. [facility] will see her on Sunday. Patient to discharge home with S.O. and [facility] services.
--- NOTE | 2016-12-08 16:34 | NUR ---
Pam called from [facility] and pt does not have a pcp and they can not see her until she does so pt has an appointment with Dr Rosa Wisdom and after that they can get her set up.
== END 2016-12-07 16:10 | disposition home health service (06) | DRG 853 ==
LOC: GMED 20:50 → GPCU 23:57 → GICU 11-22 18:04 → GPCU 11-23 17:40
PROVIDERS: Emergency Medicine; Internal Medicine; Thoracic Surgery (Cardiothoracic Vascular Surgery); ADMIT Family Medicine
PROC: 0WBC4ZX Excision of Mediastinum, Percutaneous Endoscopic Approach, Diagnostic (ICD-10-PCS; 2016-11-21)
PROC: 0W9D00Z Drainage of Pericardial Cavity with Drainage Device, Open Approach (ICD-10-PCS; principal; 2016-11-22)
PROC: 3E03305 Introduction of Other Antineoplastic into Peripheral Vein, Percutaneous Approach (ICD-10-PCS; 2016-11-25)
PROC: 0W993ZX Drainage of Right Pleural Cavity, Percutaneous Approach, Diagnostic (ICD-10-PCS; 2016-11-27)
DX: A41.9 Sepsis, unspecified organism (principal); J18.9 Pneumonia, unspecified organism; I31.4 Cardiac tamponade; J96.21 Acute and chronic respiratory failure with hypoxia; J91.0 Malignant pleural effusion; D61.810 Antineoplastic chemotherapy induced pancytopenia; J96.12 Chronic respiratory failure with hypercapnia; J15.9 Unspecified bacterial pneumonia; I31.3 Pericardial effusion (noninflammatory); C7A.1 Malignant poorly differentiated neuroendocrine tumors; E44.1 Mild protein-calorie malnutrition; R04.2 Hemoptysis; J44.1 Chronic obstructive pulmonary disease with (acute) exacerbation; C77.1 Secondary and unspecified malignant neoplasm of intrathoracic lymph nodes; C79.72 Secondary malignant neoplasm of left adrenal gland; B37.0 Candidal stomatitis; D69.6 Thrombocytopenia, unspecified; R65.20 Severe sepsis without septic shock; I10 Essential (primary) hypertension; I48.0 Paroxysmal atrial fibrillation; Z68.29 Body mass index [BMI] 29.0-29.9, adult; F17.210 Nicotine dependence, cigarettes, uncomplicated; E66.3 Overweight; Z86.010 Personal history of colon polyps; M48.06 Spinal stenosis, lumbar region; Z79.82 Long term (current) use of aspirin; R19.7 Diarrhea, unspecified; E87.6 Hypokalemia; D64.81 Anemia due to antineoplastic chemotherapy; D64.89 Other specified anemias
CPT/HCPCS: A9503; A9577; C9399; J0171; J0282; J0690; J1100; J1200; J1453; J1644; J1650; J1720; J1940; J1956; J2001; J2020; J2060; J2310; J2405; J2469; J2543; J2704; J3010; J3480; J7030; J7040; J7050; J7060; J9045; J9267; Q0162; Q4081; Q9967

== ENCOUNTER → 2017-02-02 | Outpatient (CLI) | payer MEDICAID | END | disposition disaster alternative care site (69) | LOC: GPOC 11:00 | DX: D64.9 Anemia, unspecified (principal) | CPT/HCPCS: J1200; J1642; J7040; P9016 ==